=== PATIENT | male | born 1980 | race Caucasian/White ===

== ENCOUNTER 2021-07-15 15:19 | Emergency (ER) | payer BC, OTHER ==
[2021-07-15 16:14] VITALS: TEMP 98.2
[2021-07-15] MEDS ORDERED: SODIUM CHLORIDE 0.9% 500 ML 500 ML IV ONE (16:46)
--- NOTE | 2021-07-15 17:00 | ED ---
General Adult HPI - General Chief complaint: Recheck/Abnormal Lab/Rx Stated complaint: High Blood Pressure, Near Syncope Time Seen by Provider: 07/15/21 16:30 Source: patient, RN notes reviewed, old records reviewed Mode of arrival: ambulatory - History of Present Illness Initial comments: This is a 41-year-old male who presents emergency Department stating that on Wednesday [place] he started feeling off and stated that he has slurred speech he was having some difficulties walking he stated he was having some difficulty driving his car stay on the road he felt as though he was a little bit dizzy. Patient states he doesn't have any more slurred speech. Patient s tates he still doesn't feel himself and yesterday has some trouble trying to remember what day it was. Patient states today he just feels off he does not also describe it but he doesn't feel lightheaded.His father works with him and states he doesn't seem to be himself and seems to be a little off and that is why brought him in. Father states he looks the same there is no drooping face or so slurred speech but he just seems weak and he also is noted over the last couple of weeks just break out with diaphoresis even though the room was in the 60s. Patient denies any chest pain palpitations difficulty breathing shortest breath per patient denies any fever chills per patient denies any abdominal pain patient denies nausea vomiting diarrhea. She is a diabetic as well. Patient states that he has been feeling a little off last couple weeks and has noticed some episodes of diaphoresis and it has become so frequent and excessive that other people are starting to notice. Father also stated he is extremely tired lately. - Related Data Home Medications Medication Instructions Recorded Confirmed ARIPiprazole [Abilify] 2 mg PO DAILY 07/15/21 07/15/21 Citalopram Hydrobromide [CeleXA] 40 mg PO DAILY 07/15/21 07/15/21 Dextroamphetamine/Amphetamine 30 mg PO DAILY 07/15/21 07/15/21 [Adderall] Propranolol HCl 120 mg PO BID 07/15/21 07/15/21 clonazePAM [KlonoPIN] 0.5 mg PO DAILY PRN 07/15/21 07/15/21 metFORMIN HCL 1,000 mg PO BID-W/MEALS 07/15/21 07/15/21 Allergies Allergy/AdvReac Type Severity Reaction Status Date / Time No Known Allergies Allergy Verified 07/15/21 17:47 Review of Systems ROS Statement: Those systems with pertinent positive or pertinent negative responses have been documented in the HPI. ROS Other: All systems not noted in ROS Statement are negative. Past Medical History Past Medical History: Diabetes Mellitus, Hypertension History of Any Multi-Drug Resistant Organisms: None Reported Past Surgical History: Orthopedic Surgery Past Psychological History: No Psychological Hx Reported, Anxiety, Bipolar Smoking Status: Never smoker Past Alcohol Use History: None Reported Past Drug Use History: None Reported General Exam - General Exam Comments Initial Comments: GENERAL: Patient is well-developed and well-nourished. Patient is nontoxic and well-hy drated and is in no acute distress. ENT: Neck is soft and supple. No significant lymphadenopathy is noted. Oropharynx is clear. Moist mucous membranes. Neck has full range of motion without elici ting any pain. EYES: The sclera were anicteric and conjunctiva were pink and moist. Extraocular movements were intact and pupils were equal round and reactive to light. Eyelids were unremarkable. PULMONARY: Unlabored respirations. Good breath sounds bilaterally. No audible rales rhonchi or wheezing was noted. CARDIOVASCULAR: There is a regular rate and rhythm without any murmurs gallops or rubs. ABDOMEN: Soft and nontender with normal bowel sounds. SKIN: Skin is clear with no lesions or rashes and otherwise unremarkable. NEUROLOGIC: Patient is alert and oriented x3. Cranial nerves II through XII are grossly intact. Motor and sensory are also intact. Normal speech, volume and content. Symmetrical smile. MUSCULOSKELETAL: Normal extremities with adequate strength and full range of motion. No lower extremity swelling or edema. No calf tenderness. LYMPHATICS: No significant lymphadenopathy is noted PSYCHIATRIC: Normal psychiatric evaluation. Course Vital Signs 07/15/21 07/15/21 07/15/21 16:08 18:21 19:30 Temperature 98.2 F Pulse Rate 82 82 87 Respiratory 18 16 16 Rate Blood Pressure 176/100 160/102 156/92 O2 Sat by Pulse 95 99 100 Oximetry Medical Decision Making - Medical Decision Making EKG shows sinus rhythm at 60 bpm NE interval 159 QRSs 80 QT interval 392 QTC is 49. Patient's EKG shows no ST segment elevation or depression. CT of the brain showed no acute abnormality. I confronted the patient about his methamphetamine abuse he did not admit to it but some of his questioning indicated he may have been using. Patient states he is still worried about slurred speech and the fact that he was off balance and was having difficulty driving home. He states he still doesn't feel like he is at his baseline. I spoke with sounds physician's he agreed to admit the patient admitted the patient wrote admitting orders patient decided not to stay because he was confronted with the methamphetamine abuse in the left AMA - Lab Data Result diagrams: 07/15/21 17:35 07/15/21 17:35 Lab Results 07/15/21 07/15/21 07/15/21 Range/Units 17:35 17:35 17:35 WBC 5.6 (3.8-10.6) k/uL RBC 5.24 (4.30-5.90) m/uL Hgb 14.4 (13.0-17.5) gm/dL Hct 44.4 (39.0-53.0) % MCV 84.7 (80.0-100.0) fL MCH 27.5 (25.0-35.0) pg MCHC 32.5 (31.0-37.0) g/dL RDW 13.4 (11.5-15.5) % Plt Count 248 (150-450) k/uL MPV 7.4 Neutrophils % 51 % Lymphocytes % 34 % Monocytes % 6 % Eosinophils % 5 % Basophils % 1 % Neutrophils # 2.8 (1.3-7.7) k/uL Lymphocytes # 1.9 (1.0-4.8) k/uL Monocytes # 0.3 (0-1.0) k/uL Eosinophils # 0.3 (0-0.7) k/uL Basophils # 0.1 (0-0.2) k/uL PT 10.2 (9.0-12.0) sec INR 0.9 (<1.2) APTT 24.0 (22.0-30.0) sec Sodium (137-145) mmol/L Potassium (3.5-5.1) mmol/L Chloride (98-107) mmol/L Carbon Dioxide (22-30) mmol/L Anion Gap mmol/L BUN (9-20) mg/dL Creatinine (0.66-1.25) mg/dL Est GFR (CKD-EPI)AfAm (>60 ml/min/1.73 sqM) Est GFR (CKD-EPI)NonAf (>60 ml/min/1.73 sqM) Glucose (74-99) mg/dL Calcium (8.4-10.2) mg/dL Magnesium (1.6-2.3) mg/dL Total Bilirubin (0.2-1.3) mg/dL AST (17-59) U/L ALT (4-49) U/L Alkaline Phosphatase (38-126) U/L Troponin I (0.000-0.034) ng/mL Total Protein (6.3-8.2) g/dL Albumin (3.5-5.0) g/dL TSH (0.465-4.680) mIU/L Free T4 (0.78-2.19) ng/dL Urine Color Urine Appearance (Clear) Urine pH (5.0-8.0) Ur Specific Clifford (1.001-1.035) Urine Protein (Negative) Urine Glucose (UA) (Negative) Urine Ketones (Negative) Urine Blood (Negative) Urine Nitrite (Negative) Urine Bilirubin (Negative) Urine Urobilinogen (<2.0) mg/dL Ur Leukocyte Esterase (Negative) Urine RBC (0-5) /hpf Urine WBC (0-5) /hpf Ur Squamous Epith Cells (0-4) /hpf Amorphous Sediment (None) /hpf Urine Mucus (None) /hpf Urine Opiates Screen (NotDetected) Ur Oxycodone Screen (NotDetected) Urine Methadone Screen (NotDetected) Ur Propoxyphene Screen (NotDetected) Ur Barbiturates Screen (NotDetected) U Tricyclic Antidepress (NotDetected) Ur Phencyclidine Scrn (NotDetected) Ur Amphetamines Screen (NotDetected) U Methamphetamines Scrn (NotDetected) U Benzodiazepines Scrn (NotDetected) Urine Cocaine Screen (NotDetected) U Marijuana (THC) Screen (NotDetected) Acetone, Qual (Negative) Coronavirus (PCR) Not Detected (Not Detectd) 07/15/21 07/15/21 07/15/21 Range/Units 17:35 17:35 17:35 WBC (3.8-10.6) k/uL RBC (4.30-5.90) m/uL Hgb (13.0-17.5) gm/dL Hct (39.0-53.0) % MCV (80.0-100.0) fL MCH (25.0-35.0) pg MCHC (31.0-37.0) g/dL RDW (11.5-15.5) % Plt Count (150-450) k/uL MPV Neutrophils % % Lymphocytes % % Monocytes % % Eosinophils % % Basophils % % Neutrophils # (1.3-7.7) k/uL Lymphocytes # (1.0-4.8) k/uL Monocytes # (0-1.0) k/uL Eosinophils # (0-0.7) k/uL Basophils # (0-0.2) k/uL PT (9.0-12.0) sec INR (<1.2) APTT (22.0-30.0) sec Sodium 135 L (137-145) mmol/L Potassium 4.2 (3.5-5.1) mmol/L Chloride 100 (98-107) mmol/L Carbon Dioxide 31 H (22-30) mmol/L Anion Gap 4 mmol/L BUN 13 (9-20) mg/dL Creatinine 0.83 (0.66-1.25) mg/dL Est GFR (CKD-EPI)AfAm >90 (>60 ml/min/1.73 sqM) Est GFR (CKD-EPI)NonAf >90 (>60 ml/min/1.73 sqM) Glucose 175 H (74-99) mg/dL Calcium 8.7 (8.4-10.2) mg/dL Magnesium 1.6 (1.6-2.3) mg/dL Total Bilirubin 0.6 (0.2-1.3) mg/dL AST 46 (17-59) U/L ALT 78 H (4-49) U/L Alkaline Phosphatase 48 (38-126) U/L Troponin I <0.012 (0.000-0.034) ng/mL Total Protein 7.1 (6.3-8.2) g/dL Albumin 3.8 (3.5-5.0) g/dL TSH 0.459 L (0.465-4.680) mIU/L Free T4 1.19 (0.78-2.19) ng/dL Urine Color Yellow Urine Appearance Cloudy (Clear) Urine pH 6.0 (5.0-8.0) Ur Specific Clifford 1.029 (1.001-1.035) Urine Protein Trace H (Negative) Urine Glucose (UA) 3+ H (Negative) Urine Ketones Negative (Negative) Urine Blood Negative (Negative) Urine Nitrite Negative (Negative) Urine Bilirubin Negative (Negative) Urine Urobilinogen 2.0 (<2.0) mg/dL Ur Leukocyte Esterase Trace H (Negative) Urine RBC 1 (0-5) /hpf Urine WBC 8 H (0-5) /hpf Ur Squamous Epith Cells <1 (0-4) /hpf Amorphous Sediment Rare H (None) /hpf Urine Mucus Many H (None) /hpf Urine Opiates Screen Not Detected (NotDetected) Ur Oxycodone Screen Not Detected (NotDetected) Urine Methadone Screen Not Detected (NotDetected) Ur Propoxyphene Screen Not Detected (NotDetected) Ur Barbiturates Screen Not Detected (NotDetected) U Tricyclic Antidepress Not Detected (NotDetected) Ur Phencyclidine Scrn Not Detected (NotDetected) Ur Amphetamines Screen Detected H (NotDetected) U Methamphetamines Scrn Detected H (NotDetected) U Benzodiazepines Scrn Not Detected (NotDetected) Urine Cocaine Screen Not Detected (NotDetected) U Marijuana (THC) Screen Detected H (NotDetected) Acetone, Qual Negative (Negative) Coronavirus (PCR) (Not Detectd) Disposition Clinical Impression: TIA (transient ischemic attack), Methamphetamine abuse Disposition: Left Against Medical Advice Referrals: Angela Pradhan MD [Primary Care Provider] - 1-2 days Time of Disposition: 19:24
[2021-07-15] MEDS ORDERED: hydrALAZINE HCL 20 MG/ML 1 ML VIAL IVP STA (17:01)
--- NOTE | 2021-07-15 17:25 | XR ---
EXAMINATION TYPE: XR chest 2V DATE OF EXAM: 07/15/2021 5:05 PM COMPARISON: None TECHNIQUE: XR chest 2V Frontal and lateral views of the chest. CLINICAL INDICATION:Male, 41 years old with history of Chest Pain; FINDINGS: Lungs/Pleura: There is no evidence of pleural effusion, focal consolidation, or pneumothorax. Pulmonary vascularity: Unremarkable. Heart/mediastinum: Cardiomediastinal silhouette is unremarkable. Musculoskeletal: No acute osseous pathology. IMPRESSION: No acute cardiopulmonary disease/process.
--- NOTE | 2021-07-15 17:47 | CT ---
EXAMINATION TYPE: CT brain wo con CT DLP: 1188.4 mGycm, Automated exposure control for dose reduction was used. DATE OF EXAM: 07/15/2021 5:16 PM COMPARISON: None. CLINICAL INDICATION:Male, 41 years old with history of Slurred speech, ataxia, Slurred speech. TECHNIQUE: Brain: Multiple axial CT images of the brain were obtained without IV contrast. FINDINGS: Brain: Extra-axial spaces: No abnormal extra-axial fluid collections. Ventricular system: Within normal limits Cerebral parenchyma: No acute intraparenchymal hemorrhage or mass effect. The morelos-white junction is well differentiated. Cerebellum: Unremarkable. Mass effect: No evidence of midline shift. Intracranial vasculature: unremarkable Soft tissues: Normal. Calvarium/osseous structures: No depressed skull fracture. Paranasal sinuses and mastoid air cells: Mild scattered paranasal sinus disease. Visualized orbits: Orbital contents are intact. IMPRESSION: No acute intracranial process.
[2021-07-15 17:54] LABS: Basophils # (A) 0.1 k/uL (0-0.2); Basophils % (A) 1 %; Eosinophils # (A) 0.3 k/uL (0-0.7); Eosinophils % (A) 5 %; HCT 44.4 % (39.0-53.0); HGB 14.4 gm/dL (13.0-17.5); Lymphocytes # (A) 1.9 k/uL (1.0-4.8); Lymphocytes % (A) 34 %; MCH 27.5 pg (25.0-35.0); MCHC 32.5 g/dL (31.0-37.0); MCV 84.7 fL (80.0-100.0); Mean Platelet Volume 7.4; Monocytes # (A) 0.3 k/uL (0-1.0); Monocytes % (A) 6 %; Neutrophils # (A) 2.8 k/uL (1.3-7.7); Neutrophils % (A) 51 %; Platelet Count 248 k/uL (150-450); RBC 5.24 m/uL (4.30-5.90); RDW 13.4 % (11.5-15.5); WBC 5.6 k/uL (3.8-10.6)
[2021-07-15 18:00] LABS: INR 0.9 (<1.2); Prothrombin Time 10.2 sec (9.0-12.0)
[2021-07-15 18:02] LABS: ALT 78 U/L (4-49); AST 46 U/L (17-59); African American GFR (CKD) >90 (>60 ml/min/1.73 sqM); Albumin 3.8 g/dL (3.5-5.0); Alkaline Phosphatase 48 U/L (38-126); Anion Gap 4 mmol/L; Blood Urea Nitrogen 13 mg/dL (9-20); Calcium 8.7 mg/dL (8.4-10.2); Carbon Dioxide 31 mmol/L (22-30); Chloride 100 mmol/L (98-107); Glucose 175 mg/dL (74-99); Magnesium 1.6 mg/dL (1.6-2.3); Non-African American GFR(CKD) >90 (>60 ml/min/1.73 sqM); Potassium 4.2 mmol/L (3.5-5.1); Sodium 135 mmol/L (137-145); Total Bilirubin 0.6 mg/dL (0.2-1.3); Total Protein 7.1 g/dL (6.3-8.2)
[2021-07-15 18:21] VITALS: RESP 16
[2021-07-15 18:57] LABS: Amorphous Sediment,Urine Rare /hpf; Appearance,Urine Cloudy (Clear); Bilirubin,Urine Negative (Negative); Blood,Urine Negative (Negative); Color,Urine Yellow; Glucose,Urine (UA) 3+ (Negative); Ketones,Urine Negative (Negative); Leukocyte Esterase,Urine Trace (Negative); Mucus,Urine Many /hpf; Nitrite,Urine Negative (Negative); Protein,Urine Trace (Negative); RBC,Urine 1 /hpf (0-5); Specific Gravity,Urine 1.029 (1.001-1.035); Squamous Epithelial Cell,Urine <1 /hpf (0-4); WBC,Urine 8 /hpf (0-5)
[2021-07-15 18:59] LABS: Amphetamine Screen,Urine Detected (NotDetected); Barbiturate Screen,Urine Not Detected (NotDetected); Benzodiazepines Screen,Urine Not Detected (NotDetected); Cocaine Screen,Urine Not Detected (NotDetected); Methadone Screen, Urine Not Detected (NotDetected); Opiate Screen,Urine Not Detected (NotDetected); Oxycodone Screen, Urine Not Detected (NotDetected); Phencyclidine Screen,Urine Not Detected (NotDetected); Tricyclic Antidepressant,Urine Not Detected (NotDetected); Urn Cannabinoid Scrn Detected (NotDetected)
[2021-07-15 19:18] LABS: T4, Free (Free Thyroxine) 1.19 ng/dL (0.78-2.19)
[2021-07-15] MEDS ORDERED: ASPIRIN 325 MG TAB PO STA (19:24)
[2021-07-15 19:31] VITALS: BP 156/92; PULSE 87
[2021-07-16] MEDS ORDERED: ASPIRIN 325 MG TAB PO SCH (09:00)
== END 2021-07-15 19:25 | disposition left against medical advice (07) ==
LOC: EC 15:19
DX: G45.9 Transient cerebral ischemic attack, unspecified (principal); F15.10 Other stimulant abuse, uncomplicated; E11.9 Type 2 diabetes mellitus without complications; I10 Essential (primary) hypertension; Z79.84 Long term (current) use of oral hypoglycemic drugs; Z79.899 Other long term (current) drug therapy; Z20.822 Contact with and (suspected) exposure to COVID-19
CPT/HCPCS: 36415; 93005; 84439; 80053; 84443; 82009; 83735; 84484; 85025; 85610; 85730; 81001; 80306; 87635; 71046; 70450; 99284; 96374; J0360

== ENCOUNTER 2022-09-01 01:49 | Emergency (ER) | payer BC ==
[2022-09-01 02:03] VITALS: RESP 16; TEMP 98.3
[2022-09-01] MEDS ORDERED: methylPREDNISolone SOD SUCCI 125 MG/2 ML VIAL IM ONE (02:13)
[2022-09-01 02:15] VITALS: BP 159/110; PULSE 88
[2022-09-01] MEDS ORDERED: KETOROLAC 15 MG/ML 1 ML VIAL IM STA (02:21)
--- NOTE | 2022-09-01 02:23 | ED ---
General Adult HPI - General Chief complaint: Skin/Abscess/Foreign Body Stated complaint: Poison Claire Time Seen by Provider: 09/01/22 02:07 Source: patient Mode of arrival: ambulatory - History of Present Illness Initial comments: Patient is a 42-year-old male who presents to the emergency department for rash. Patient describes poison claire type rash for almost 2 weeks over his lower extremities, back, abdomen. After he was [place] in [place]. Patient states the rash is very itchy and somewhat painful. He denies history of poison claire, oak, sumac. No fever or chills. No shortness of breath. - Related Data Home Medications Medication Instructions Recorded Confirmed ARIPiprazole [Abilify] 2 mg PO DAILY 07/15/21 07/15/21 Citalopram Hydrobromide [CeleXA] 40 mg PO DAILY 07/15/21 07/15/21 Dextroamphetamine/Amphetamine 30 mg PO DAILY 07/15/21 07/15/21 [Adderall] Propranolol HCl 120 mg PO BID 07/15/21 07/15/21 clonazePAM [KlonoPIN] 0.5 mg PO DAILY PRN 07/15/21 07/15/21 metFORMIN HCL 1,000 mg PO BID-W/MEALS 07/15/21 07/15/21 Previous Rx's Medication Instructions Recorded Ibuprofen [Motrin] 800 mg PO Q8HR PRN #30 tab 09/01/22 predniSONE See Taper PO DIRECTED #80 tab 09/01/22 Allergies Allergy/AdvReac Type Severity Reaction Status Date / Time No Known Allergies Allergy Verified 07/15/21 17:47 Review of Systems ROS Statement: Those systems with pertinent positive or pertinent negative responses have been documented in the HPI. ROS Other: All systems not noted in ROS Statement are negative. Past Medical History Past Medical History: Diabetes Mellitus, Hypertension History of Any Multi-Drug Resistant Organisms: None Reported Past Surgical History: Orthopedic Surgery Past Psychological History: No Psychological Hx Reported, Anxiety, Bipolar Smoking Status: Never smoker Past Alcohol Use History: None Reported Past Drug Use History: None Reported General Exam General appearance: alert, in no apparent distress Head exam: Present: atraumatic, normocephalic, normal inspection Eye exam: Present: normal appearance, PERRL, EOMI. Absent: scleral icterus, conjunctival injection, periorbital swelling Respiratory exam: Present: normal lung sounds bilaterally. Absent: respiratory distress, wheezes, rales, rhonchi, stridor Cardiovascular Exam: Present: regular rate, normal rhythm, normal heart sounds. Absent: systolic murmur, diastolic murmur, rubs, gallop, clicks Neurological exam: Present: alert, oriented X3, CN II-XII intact Psychiatric exam: Present: normal affect, normal mood Skin exam: Present: warm, dry, intact, normal color, rash (widespread dermatitis of the lower extremities, abdomen, back ) Course Vital Signs 09/01/22 09/01/22 02:00 02:14 Temperature 98.3 F Pulse Rate 89 88 Respiratory 16 Rate Blood Pressure 155/113 159/110 O2 Sat by Pulse 100 98 Oximetry Medical Decision Making - Medical Decision Making Was pt. sent in by a medical professional or institution (, PA, WINDOWS MOBILE DEVELOPER, urgent care, hospital, or longterm...) When possible be specific @ -No Did you speak to anyone other than the patient for history (EMS, parent, family, police, friend...)? What history was obtained from this source @ -No Did you review nursing and triage notes (agree or disagree)? Why? @ -I reviewed and agree with nursing and triage notes Were old charts reviewed (outside hosp., previous admission, EMS record, old EKG, old radiological studies, urgent care reports/EKG's, longterm records)? Report findings @ -No old charts were reviewed Differential Diagnosis (chest pain, altered mental status, abdominal pain women, abdominal pain men, vaginal bleeding, weakness, fever, dyspnea, syncope, headache, dizziness, GI bleed, back pain, seizure, CVA, palpatations, mental health)? @ -Medication reaction, contact dermatitis, poison claire, poison oak, sumac. This list is not meant to be all-inclusive EKG interpreted by me (3pts min.). @ -As above X-rays interpreted by me (1pt min.). @ -None done CT interpreted by me (1pt min.). @ -None done U/S interpreted by me (1pt. min.). @ -None done What testing was considered but not performed or refused? (CT, X-rays, U/S, labs)? Why? @ -None What meds were considered but not given or refused? Why? @ -None Did you discuss the management of the patient with other professionals (professionals i.e. , PA, WINDOWS MOBILE DEVELOPER, lab, RT, psych nurse, social worker psychiatric, bakery pastry internship, teacher, veterans service officer, upper caser)? Give summary @ -No Was smoking cessation discussed for >3mins.? @ -No Was critical care preformed (if so, how long)? @ -No Were there social determinants of health that impacted care today? How? (Homelessness, low income, unemployed, alcoholism, drug addiction, transportation, low edu. Level, literacy, decrease access to med. care, half-way, rehab)? @ -[No] Was there de-escalation of care discussed even if they declined (Discuss DNR or withdrawal of care, Hospice)? DNR status @ -[No] What co-morbidities impacted this encounter? (DM, HTN, Smoking, COPD, CAD, Cancer, CVA, ARF, Chemo, Hep., AIDS, mental health diagnosis, sleep apnea, morbid obesity)? @ -[None] Was patient admitted / discharged? Hospital course, mention meds given and route, prescriptions, significant lab abnormalities, going to OR and other pertinent info. @ -Discharged. Patient has widespread dermatitis which appears to be related to poison claire or oak. No airway compromise patient will be discharged with prednisone taper Undiagnosed new problem with uncertain prognosis? @ -[No] Drug Therapy requiring intensive monitoring for toxicity (Heparin, Nitro, Insulin, Cardizem)? @ -[No] Were any procedures done? @ -[No] Diagnosis/symptom? @ -Poison claire Acute, or Chronic, or Acute on Chronic? @Acute Uncomplicated (without systemic symptoms) or Complicated (systemic symptoms)? @ -Uncomplicated Side effects of treatment? @ -[No] Exacerbation, Progression, or Severe Exacerbation? @ -[No] Poses a threat to life or bodily function? How? (Chest pain, USA, MS, pneumonia, PE, COPD, DKA, ARF, appy, cholecystitis, CVA, Diverticulitis, Homicidal, Suicidal, threat to staff... and all critical care pts) @ -[No] Dr. Hunt is my attending Disposition Clinical Impression: Poison claire Disposition: HOME SELF-CARE Condition: Good Instructions (If sedation given, give patient instructions): Poison Claire (ED) Additional Instructions: Take medication as directed. Take Benadryl for any itching. Oatmeal baths may help with itching as well. Avoid scratching. It is important to take your blood pressure medication. Return to the emergency department if you experience new, concerning, or worsening symptoms. Prescriptions: Ibuprofen [Motrin] 800 mg PO Q8HR PRN #30 tab PRN Reason: Pain predniSONE See Taper PO DIRECTED #80 tab Is patient prescribed a controlled substance at d/c from ED?: No Referrals: Angela Pradhan MD [Primary Care Provider] - 1-2 days
== END 2022-09-01 02:40 | disposition home or self-care (01) ==
LOC: EC 01:49
DX: L23.7 Allergic contact dermatitis due to plants, except food (principal); I10 Essential (primary) hypertension; E11.9 Type 2 diabetes mellitus without complications; Z79.84 Long term (current) use of oral hypoglycemic drugs
CPT/HCPCS: 99283; 96372 ×2; J2930; J1885

== ENCOUNTER 2023-02-24 20:49 | Inpatient (IN) | payer BC, OTHER ==
[2023-02-24 21:11] LABS: Glucose,Whole Blood 147 mg/dL (70-110)
[2023-02-24] MEDS ORDERED: SODIUM CHLORIDE 0.9% 1,000 ML IV STA (23:08)
[2023-02-24] MEDS ORDERED: LORazepam 2 MG/ML INJ IV STA (23:09)
--- NOTE | 2023-02-24 23:57 | XR ---
EXAM: XR Chest, 2 Views CLINICAL HISTORY: ITS.REASON XR Reason: cough TECHNIQUE: Frontal and lateral views of the chest. COMPARISON: Chest 2 views dated 07/15/2021 FINDINGS: Lungs: Unremarkable. No consolidation. The pulmonary vasculature demonstrates no significant radiographic abnormality. Pleural space: Unremarkable. No pneumothorax. No large pleural effusion. Heart: Unremarkable. No cardiomegaly. Mediastinum: The mediastinal contours are unremarkable. The trachea is midline. Bones/joints: Unremarkable. No acute fracture. IMPRESSION: No acute cardiopulmonary process or significant alteration from the previous examination.
--- NOTE | 2023-02-24 23:59 | CT ---
EXAM: CT Head Without Intravenous Contrast CLINICAL HISTORY: ams TECHNIQUE: Axial computed tomography images of the head/brain without intravenous contrast. CTDI is 49.1 mGy and DLP is 1212.4 mGy-cm. This CT exam was performed using one or more of the following dose reduction techniques: automated exposure control, adjustment of the mA and/or kV according to patient size, and/or use of iterative reconstruction technique. COMPARISON: CT head without contrast dated 07/15/2021 FINDINGS: Limitations: There is mild motion artifact through the inferior calvarium, which degrades image quality on multiple image slices. Brain: Unremarkable. No hemorrhage. No significant white matter disease. No edema. Ventricles: Unremarkable. No ventriculomegaly. Bones/joints: No acute osseous abnormality. No focal lesion. Soft tissues: Unremarkable. Sinuses: Unremarkable as visualized. No acute sinusitis. Mastoid air cells: Unremarkable as visualized. No mastoid effusion. IMPRESSION: No acute intracranial process identified.
[2023-02-25 00:10] LABS: Basophils # (A) 0.1 k/uL (0-0.2); Basophils % (A) 1 %; Eosinophils # (A) 0.1 k/uL (0-0.7); Eosinophils % (A) 1 %; HCT 42.3 % (39.0-53.0); HGB 14.1 gm/dL (13.0-17.5); Lymphocytes % (A) 28 %; MCH 27.7 pg (25.0-35.0); MCHC 33.2 g/dL (31.0-37.0); MCV 83.4 fL (80.0-100.0); Mean Platelet Volume 7.5; Monocytes # (A) 0.8 k/uL (0-1.0); Monocytes % (A) 7 %; Neutrophils # (A) 6.6 k/uL (1.3-7.7); Neutrophils % (A) 62 %; Platelet Count 251 k/uL (150-450); RBC 5.07 m/uL (4.30-5.90); RDW 13.1 % (11.5-15.5); WBC 10.7 k/uL (3.8-10.6)
[2023-02-25 00:15] LABS: ALT 50 U/L (4-49); AST 52 U/L (17-59); African American GFR (CKD) >90 (>60 ml/min/1.73 sqM); Albumin 4.3 g/dL (3.5-5.0); Alkaline Phosphatase 50 U/L (38-126); Anion Gap 11 mmol/L; Blood Urea Nitrogen 16 mg/dL (9-20); Calcium 9.1 mg/dL (8.4-10.2); Carbon Dioxide 23 mmol/L (22-30); Chloride 102 mmol/L (98-107); Glucose 104 mg/dL (74-99); Non-African American GFR(CKD) 88 (>60 ml/min/1.73 sqM); Sodium 136 mmol/L (137-145); Total Bilirubin 1.1 mg/dL (0.2-1.3); Total Protein 6.9 g/dL (6.3-8.2)
[2023-02-25] MEDS ORDERED: LORazepam 2 MG/ML INJ IV STA (01:31)
--- NOTE | 2023-02-25 01:35 | ED ---
General Adult HPI - General Chief complaint: Dizziness Stated complaint: ams Time Seen by Provider: 02/24/23 22:20 Source: patient, RN notes reviewed, old records reviewed Mode of arrival: ambulatory Limitations: no limitations - History of Present Illness Initial comments: Patient is a 42-year-old male who presents emergency Department complaining of m ultiple complaints. States he is having short-term memory loss, has intermittent lightheadedness, is confused occasionally. Is alert and oriented 4 currently. Is tachycardic. States he does use methamphetamines. Appears homeless but states he has some or to stay. Appears disheveled. Denies any suicidal or homicidal ideations, attempts complaints. Denies any hallucinations. He states he feels like he should be on them for his diabetes however he has been off of it but his sugars have been fine. Has some tangential thinking and speech when I discussed with him. States he is fussy and psychiatric medications but is not. Presents for further evaluation. - Related Data Home Medications Medication Instructions Recorded Confirmed No Known Home Medications 02/24/23 02/24/23 Allergies Allergy/AdvReac Type Severity Reaction Status Date / Time No Known Allergies Allergy Verified 02/24/23 22:38 Review of Systems ROS Statement: Those systems with pertinent positive or pertinent negative responses have been documented in the HPI. Review of Systems: CONST: Denies fever EYES: Denies blurry vision ENT: Denies nasal congestion C/V: Denies Chest pain RESP: Denies shortness of breath GI: Denies abdominal pain : Denies dysuria SKIN: Denies rash. MSK: Denies joint pain. NEURO: Denies headache ROS Other: All systems not noted in ROS Statement are negative. Past Medical History Past Medical History: Diabetes Mellitus, Hypertension History of Any Multi-Drug Resistant Organisms: None Reported Past Surgical History: Orthopedic Surgery Past Psychological History: No Psychological Hx Reported, Anxiety, Bipolar Smoking Status: Former smoker Past Alcohol Use History: Occasional Past Drug Use History: Marijuana, Methamphetamine General Exam - General Exam Comments Initial Comments: General: Appears anxious, disheveled HEAD: Normal with no signs of head trauma. EYES: PERRLA, EOMI, conjunctiva normal, no discharge. ENT: Hearing grossly intact, normal oropharynx. RESPIRATORY: Clear breath sounds bilaterally. No wheezes, rales, or rhonchi. C/V: Tachycardic, S1 and S2 auscultated, peripheral pulses 2+ and intact throughout ABD: Abd is soft, nontender, nondistended EXT: Normal range of motion, no obvious deformity SKIN: No rashes or lesions observed on exposed skin. NEURO: Alert and oriented 4. No focal neurological deficits. Ambulatory without issue. Does not appear to have any memory issues when I discussed with him. Limitations: no limitations Course Vital Signs 02/24/23 02/25/23 02/25/23 20:58 00:00 11:15 Temperature 98.1 F 98.0 F Pulse Rate 134 H 120 H 97 Respiratory 22 20 18 Rate Blood Pressure 182/101 145/89 161/103 O2 Sat by Pulse 100 100 100 Oximetry 02/25/23 14:50 Temperature 98.2 F Pulse Rate 104 H Respiratory 22 Rate Blood Pressure 159/95 O2 Sat by Pulse 98 Oximetry Medical Decision Making - Medical Decision Making Was pt. sent in by a medical professional or institution (, PA, LOGISTICS ACCOUNT MANAGER, urgent care, hospital, or half-way...) When possible be specific @ -No Did you speak to anyone other than the patient for history (EMS, parent, family, police, friend...)? What history was obtained from this source @ -No Did you review nursing and triage notes (agree or disagree)? Why? @ -I reviewed and agree with nursing and triage notes Were old charts reviewed (outside hosp., previous admission, EMS record, old EKG, old radiological studies, urgent care reports/EKG's, half-way records)? Report findings @ -Old charts reviewed Differential Diagnosis (chest pain, altered mental status, abdominal pain women, abdominal pain men, vaginal bleeding, weakness, fever, dyspnea, syncope, headache, dizziness, GI bleed, back pain, seizure, CVA, palpatations, mental health, musculoskeletal)? @ -Differential Mental Health Depression, anxiety, bipolar, psychosis, schizophrenia, borderline personality, situational depression, adjustment disorder, behavioral disorder, brain tumor, malingering, substance abuse, encephalopathy, medication reaction, dementia, hypothyroidism, degenerative neurologic disorder, lupus.... This is not meant to be all-inclusive list Differential Dizziness: Benign paroxysmal positional Vertigo, Menieres disease, otitis media, acoustic neuroma, vertebrobasilar insufficiency, cerebellar stroke, encephalitis, hypovolemic, arrhythmia, coronary artery syndrome, anemia, this is not meant to be an all-inclusive list EKG interpreted by me (3pts min.). @ -As above X-rays interpreted by me (1pt min.). @ -Chest X Ray reveals no obvious acute cardiopulmonary process. CT interpreted by me (1pt min.). @ -CT brain reveals no evidence of acute intracranial process. U/S interpreted by me (1pt. min.). @ -None done What testing was considered but not performed or refused? (CT, X-rays, U/S, labs)? Why? @ -None What meds were considered but not given or refused? Why? @ None Did you discuss the management of the patient with other professionals (professionals i.e. , PA, LOGISTICS ACCOUNT MANAGER, lab, RT, psych nurse, high school social studies tutor, tile layer, teacher, investigation officer, case management coordinator)? Give summary @ -EPS notified of the consult Was smoking cessation discussed for >3mins.? @ No Was critical care preformed (if so, how long)? @ No Were there social determinants of health that impacted care today? How? (Homelessness, low income, unemployed, alcoholism, drug addiction, transportation, low edu. Level, literacy, decrease access to med. care, senior living, rehab)? @ No Was there de-escalation of care discussed even if they declined (Discuss DNR or withdrawal of care, Hospice)? DNR status @ No What co-morbidities impacted this encounter? (DM, HTN, Smoking, COPD, CAD, Cancer, CVA, ARF, Chemo, Hep., AIDS, mental health diagnosis, sleep apnea, morbid obesity)? @ None Was patient admitted / discharged? Hospital course, mention meds given and route, prescriptions, significant lab abnormalities, going to OR and other pertinent info. @ -Based on the patient's presentation and physical exam, he presents complaining of weeks of symptoms of intermittent dizziness, possible short-term memory loss. Currently has no symptoms at this time. Appears disheveled. [facility] is non compliant with medications which include psychiatric meds. Cannot tell me the names. Does endorse methamphetamine use recently. Patient is disheveled. I did discuss with him and we will obtain medical rule out for any obvious cause of his symptoms however do believe it is likely related to substance abuse. I did offer discussion with psychiatric services following workup which she accepted. Vital signs of tachycardia within acceptable limits. EKG shows sinus tachycardia. Patient given IV Ativan as well as IV fluids. Patient's laboratory studies are within acceptable limits. Urine studies still pending. Alcohol undetectable. Imaging unremarkable. On reevaluation, patient still feeling restless. I discussed is negative workup. I did offer psychiatric service in which she accepted. EPS notified of the consult. Patient is medically cleared for evaluation by psychiatry. Patient signed out to Dr. Terrazas pending psychiatric evaluation. Patient was admitted to inpatient psychiatry. Undiagnosed new problem with uncertain prognosis? @ No Drug Therapy requiring intensive monitoring for toxicity (Heparin, Nitro, Insulin, Cardizem)? @ No Were any procedures done? @ No Diagnosis/symptom? @ -Methamphetamine abuse Acute, or Chronic, or Acute on Chronic? @ -Acute on chronic Uncomplicated (without systemic symptoms) or Complicated (systemic symptoms)? @ -Complicated Side effects of treatment? @ No Exacerbation, Progression, or Severe Exacerbation? @ No Poses a threat to life or bodily function? How? (Chest pain, USA, ID, pneumonia, PE, COPD, DKA, ARF, appy, cholecystitis, CVA, Diverticulitis, Homicidal, Suicidal, threat to staff... and all critical care pts) @ -Possibly, yes - Lab Data Result diagrams: 02/24/23 23:44 02/24/23 23:44 Lab Results 02/24/23 02/24/23 02/24/23 Range/Units 21:09 23:44 23:44 WBC 10.7 H (3.8-10.6) k/uL RBC 5.07 (4.30-5.90) m/uL Hgb 14.1 (13.0-17.5) gm/dL Hct 42.3 (39.0-53.0) % MCV 83.4 (80.0-100.0) fL MCH 27.7 (25.0-35.0) pg MCHC 33.2 (31.0-37.0) g/dL RDW 13.1 (11.5-15.5) % Plt Count 251 (150-450) k/uL MPV 7.5 Neutrophils % 62 % Lymphocytes % 28 % Monocytes % 7 % Eosinophils % 1 % Basophils % 1 % Neutrophils # 6.6 (1.3-7.7) k/uL Lymphocytes # 3.0 (1.0-4.8) k/uL Monocytes # 0.8 (0-1.0) k/uL Eosinophils # 0.1 (0-0.7) k/uL Basophils # 0.1 (0-0.2) k/uL Sodium 136 L (137-145) mmol/L Potassium 4.0 (3.5-5.1) mmol/L Chloride 102 (98-107) mmol/L Carbon Dioxide 23 (22-30) mmol/L Anion Gap 11 mmol/L BUN 16 (9-20) mg/dL Creatinine 1.05 (0.66-1.25) mg/dL Est GFR (CKD-EPI)AfAm >90 (>60 ml/min/1.73 sqM) Est GFR (CKD-EPI)NonAf 88 (>60 ml/min/1.73 sqM) Glucose 104 H (74-99) mg/dL POC Glucose (mg/dL) 147 H (70-110) mg/dL POC Glu Structured Cabling Technician ID August, Calcium 9.1 (8.4-10.2) mg/dL Total Bilirubin 1.1 (0.2-1.3) mg/dL AST 52 (17-59) U/L ALT 50 H (4-49) U/L Alkaline Phosphatase 50 (38-126) U/L Total Protein 6.9 (6.3-8.2) g/dL Albumin 4.3 (3.5-5.0) g/dL TSH (0.350-5.500) UIU/ML Urine Color Urine Appearance (Clear) Urine pH (5.0-8.0) Ur Specific [place] (1.001-1.035) Urine Protein (Negative) Urine Glucose (UA) (Negative) Urine Ketones (Negative) Urine Blood (Negative) Urine Nitrite (Negative) Urine Bilirubin (Negative) Urine Urobilinogen (<2.0) mg/dL Ur Leukocyte Esterase (Negative) Urine Opiates Screen (NotDetected) Ur Oxycodone Screen (NotDetected) Urine Methadone Screen (NotDetected) Ur Propoxyphene Screen (NotDetected) Ur Barbiturates Screen (NotDetected) U Tricyclic Antidepress (NotDetected) Ur Phencyclidine Scrn (NotDetected) Ur Amphetamines Screen (NotDetected) U Methamphetamines Scrn (NotDetected) U Benzodiazepines Scrn (NotDetected) Urine Cocaine Screen (NotDetected) U Marijuana (THC) Screen (NotDetected) Serum Alcohol mg/dL SARS-CoV-2 (PCR) (Not Detectd) 02/25/23 02/25/23 02/25/23 Range/Units 00:00 05:45 07:23 WBC (3.8-10.6) k/uL RBC (4.30-5.90) m/uL Hgb (13.0-17.5) gm/dL Hct (39.0-53.0) % MCV (80.0-100.0) fL MCH (25.0-35.0) pg MCHC (31.0-37.0) g/dL RDW (11.5-15.5) % Plt Count (150-450) k/uL MPV Neutrophils % % Lymphocytes % % Monocytes % % Eosinophils % % Basophils % % Neutrophils # (1.3-7.7) k/uL Lymphocytes # (1.0-4.8) k/uL Monocytes # (0-1.0) k/uL Eosinophils # (0-0.7) k/uL Basophils # (0-0.2) k/uL Sodium (137-145) mmol/L Potassium (3.5-5.1) mmol/L Chloride (98-107) mmol/L Carbon Dioxide (22-30) mmol/L Anion Gap mmol/L BUN (9-20) mg/dL Creatinine (0.66-1.25) mg/dL Est GFR (CKD-EPI)AfAm (>60 ml/min/1.73 sqM) Est GFR (CKD-EPI)NonAf (>60 ml/min/1.73 sqM) Glucose (74-99) mg/dL POC Glucose (mg/dL) (70-110) mg/dL POC Glu Structured Cabling Technician ID Calcium (8.4-10.2) mg/dL Total Bilirubin (0.2-1.3) mg/dL AST (17-59) U/L ALT (4-49) U/L Alkaline Phosphatase (38-126) U/L Total Protein (6.3-8.2) g/dL Albumin (3.5-5.0) g/dL TSH 0.286 L (0.350-5.500) UIU/ML Urine Color Yellow Urine Appearance Clear (Clear) Urine pH 5.5 (5.0-8.0) Ur Specific [place] 1.030 (1.001-1.035) Urine Protein Trace H (Negative) Urine Glucose (UA) Negative (Negative) Urine Ketones 2+ H (Negative) Urine Blood Negative (Negative) Urine Nitrite Negative (Negative) Urine Bilirubin Negative (Negative) Urine Urobilinogen <2.0 (<2.0) mg/dL Ur Leukocyte Esterase Negative (Negative) Urine Opiates Screen Not Detected (NotDetected) Ur Oxycodone Screen Not Detected (NotDetected) Urine Methadone Screen Not Detected (NotDetected) Ur Propoxyphene Screen Not Detected (NotDetected) Ur Barbiturates Screen Not Detected (NotDetected) U Tricyclic Antidepress Not Detected (NotDetected) Ur Phencyclidine Scrn Not Detected (NotDetected) Ur Amphetamines Screen Detected H (NotDetected) U Methamphetamines Scrn Detected H (NotDetected) U Benzodiazepines Scrn Not Detected (NotDetected) Urine Cocaine Screen Not Detected (NotDetected) U Marijuana (THC) Screen Detected H (NotDetected) Serum Alcohol <10 mg/dL SARS-CoV-2 (PCR) (Not Detectd) 02/25/23 Range/Units 12:20 WBC (3.8-10.6) k/uL RBC (4.30-5.90) m/uL Hgb (13.0-17.5) gm/dL Hct (39.0-53.0) % MCV (80.0-100.0) fL MCH (25.0-35.0) pg MCHC (31.0-37.0) g/dL RDW (11.5-15.5) % Plt Count (150-450) k/uL MPV Neutrophils % % Lymphocytes % % Monocytes % % Eosinophils % % Basophils % % Neutrophils # (1.3-7.7) k/uL Lymphocytes # (1.0-4.8) k/uL Monocytes # (0-1.0) k/uL Eosinophils # (0-0.7) k/uL Basophils # (0-0.2) k/uL Sodium (137-145) mmol/L Potassium (3.5-5.1) mmol/L Chloride (98-107) mmol/L Carbon Dioxide (22-30) mmol/L Anion Gap mmol/L BUN (9-20) mg/dL Creatinine (0.66-1.25) mg/dL Est GFR (CKD-EPI)AfAm (>60 ml/min/1.73 sqM) Est GFR (CKD-EPI)NonAf (>60 ml/min/1.73 sqM) Glucose (74-99) mg/dL POC Glucose (mg/dL) (70-110) mg/dL POC Glu Structured Cabling Technician ID Calcium (8.4-10.2) mg/dL Total Bilirubin (0.2-1.3) mg/dL AST (17-59) U/L ALT (4-49) U/L Alkaline Phosphatase (38-126) U/L Total Protein (6.3-8.2) g/dL Albumin (3.5-5.0) g/dL TSH (0.350-5.500) UIU/ML Urine Color Urine Appearance (Clear) Urine pH (5.0-8.0) Ur Specific [place] (1.001-1.035) Urine Protein (Negative) Urine Glucose (UA) (Negative) Urine Ketones (Negative) Urine Blood (Negative) Urine Nitrite (Negative) Urine Bilirubin (Negative) Urine Urobilinogen (<2.0) mg/dL Ur Leukocyte Esterase (Negative) Urine Opiates Screen (NotDetected) Ur Oxycodone Screen (NotDetected) Urine Methadone Screen (NotDetected) Ur Propoxyphene Screen (NotDetected) Ur Barbiturates Screen (NotDetected) U Tricyclic Antidepress (NotDetected) Ur Phencyclidine Scrn (NotDetected) Ur Amphetamines Screen (NotDetected) U Methamphetamines Scrn (NotDetected) U Benzodiazepines Scrn (NotDetected) Urine Cocaine Screen (NotDetected) U Marijuana (THC) Screen (NotDetected) Serum Alcohol mg/dL SARS-CoV-2 (PCR) Not Detected (Not Detectd) - EKG Data -: EKG Interpreted by Me EKG Comments: 12-lead Electrocardiogram Interpretation Note EKG was reviewed and interpreted by myself. 12-lead ECG performed at 2342 is interpreted by me as revealing sinus tachycardia at a rate of 119 beats per minute. [place] is normal. RI interval is 134 ms, QRS duration is 96 ms, QTc is 395 ms.. There were no ST or T wave abnormalities to suggest myocardial ischemia or injury. R wave progression across the precordium was satisfactory. By my interpretation this EKG is non-diagnostic for acute ischemia. Disposition Clinical Impression: Methamphetamine abuse Disposition: TRANSFER TO PSYCH HOSP/UNIT Condition: Stable
[2023-02-25 06:12] LABS: Appearance,Urine Clear (Clear); Bilirubin,Urine Negative (Negative); Blood,Urine Negative (Negative); Color,Urine Yellow; Glucose,Urine (UA) Negative (Negative); Ketones,Urine 2+ (Negative); Leukocyte Esterase,Urine Negative (Negative); Nitrite,Urine Negative (Negative); PH, Urine 5.5 (5.0-8.0); Protein,Urine Trace (Negative); Urobilinogen,Urine <2.0 mg/dL (<2.0)
[2023-02-25 06:40] LABS: Amphetamine Screen,Urine Detected (NotDetected); Barbiturate Screen,Urine Not Detected (NotDetected); Benzodiazepines Screen,Urine Not Detected (NotDetected); Cocaine Screen,Urine Not Detected (NotDetected); Methadone Screen, Urine Not Detected (NotDetected); Opiate Screen,Urine Not Detected (NotDetected); Oxycodone Screen, Urine Not Detected (NotDetected); Phencyclidine Screen,Urine Not Detected (NotDetected); Tricyclic Antidepressant,Urine Not Detected (NotDetected); Urn Cannabinoid Scrn Detected (NotDetected)
[2023-02-25] MEDS ORDERED: MAGNESIUM HYDROXIDE 2,400 MG/30 ML CUP PO PRN (14:35)
[2023-02-25] MEDS ORDERED: MAG HYDROX/AL HYDROX/SIMETH 30 ML CUP PO PRN (14:35)
[2023-02-25] MEDS ORDERED: traZODone HCL 50 MG TAB PO PRN (14:38)
[2023-02-25] MEDS ORDERED: haloperidoL 5 MG TAB PO PRN (14:38)
[2023-02-25] MEDS ORDERED: LORazepam 1 MG TAB PO PRN (14:38)
[2023-02-25] MEDS ORDERED: LORazepam 2 MG/ML INJ IM PRN (14:38)
[2023-02-25] MEDS ORDERED: HALOPERIDOL LACTATE 5 MG/ML 1 ML VIAL IM PRN (14:38)
[2023-02-25 14:58] LABS: Glucose,Whole Blood 154 mg/dL (70-110)
[2023-02-25 15:35] LABS: Glucose,Whole Blood 153 mg/dL (70-110)
[2023-02-25 17:44] LABS: Glucose,Whole Blood 115 mg/dL (70-110)
[2023-02-25] MEDS: ACETAMINOPHEN TAB 325 MG TAB PO PRN (17:44)
[2023-02-25] MEDS ORDERED: DEXTROSE 50% SYRINGE 50 ML IVP PRN ×2 (17:50)
[2023-02-25 19:54] LABS: Glucose,Whole Blood 230 mg/dL (70-110)
[2023-02-25] MEDS: INSULIN ASPART (NovoLOG) 100 UNIT/ML VIAL SQ SCH (20:45)
[2023-02-26 08:12] LABS: Glucose,Whole Blood 136 mg/dL (70-110)
[2023-02-26] MEDS: INSULIN ASPART (NovoLOG) 100 UNIT/ML VIAL SQ SCH ×4 (08:15→20:47)
[2023-02-26] MEDS: ACETAMINOPHEN TAB 325 MG TAB PO PRN (08:42)
[2023-02-26] MEDS: NICOTINE 14MG/24HR PATCH TRANSDERM SCH (08:43)
--- NOTE | 2023-02-26 11:17 | P.HPIM ---
History of Present Illness H&P Date: 02/26/23 This is a 42-year-old male patient of Dr. Pradhan who presented with complaints of psychosis. Patient presented with multiple complaints including short-term memory loss intermittent lightheadedness and confusion. Patient admits to using methamphetamines and has stopped taking all home medications. Patient has a known past medical history of diabetes mellitus and essential hypertension. Patient has known drug use of methamphetamines and marijuana. Patient also has past history of anxiety and bipolar. Chest x-ray completed in the ER showing no acute cardiopulmonary process. Head CT completed showing no acute intracranial process. Patient reports chronic neck pain in which she has seen by specialist outpatient. Drug screen positive for amphetamines, methamphetamines and marijuana. Patient was admitted to the mental health unit. On exam patient denies any chest pain or shortness of breath. Patient denies urinary burning or frequency. Patient was started on sliding scale coverage. TSH also noted to be low at 0.286. Patient will need follow-up with endocrinology outpatient for further management Review of Systems Please refer to HPI otherwise unremarkable Past Medical History Past Medical History: Diabetes Mellitus, Hypertension History of Any Multi-Drug Resistant Organisms: None Reported Past Surgical History: Orthopedic Surgery Past Anesthesia/Blood Transfusion Reactions: No Reported Reaction Past Psychological History: No Psychological Hx Reported, Anxiety, Bipolar Smoking Status: Former smoker Past Alcohol Use History: Occasional Past Drug Use History: Marijuana, Methamphetamine Medications and Allergies Home Medications Medication Instructions Recorded Confirmed Type No Known Home Medications 02/24/23 02/24/23 History Allergies Allergy/AdvReac Type Severity Reaction Status Date / Time No Known Allergies Allergy Verified 02/24/23 22:38 Physical Exam Vitals: Vital Signs Temp Pulse Pulse Resp BP BP Pulse Ox 02/26/23 06:43 97.7 F 94 18 160/103 97 02/25/23 15:50 97.6 F 20 143/89 02/25/23 14:50 98.2 F 104 H 22 159/95 98 02/25/23 11:15 98.0 F 97 18 161/103 100 Intake and Output 02/25/23 02/26/23 02/26/23 22:59 06:59 14:59 Other: Weight 92.76 kg Head normocephalic Neck supple Lungs clear to auscultation bilaterally no wheezing or crackles Heart regular rate and rhythm S1-S2, no rub or gallop Abdomen is soft nontender nondistended positive bowel sounds no hepatosplenomegaly Extremities no edema Neuro alert and orientated to 3 Results CBC & Chem 7: 02/24/23 23:44 02/24/23 23:44 Labs: Abnormal Lab Results - Last 24 Hours (Table) 02/25/23 02/25/23 02/25/23 Range/Units 07:23 14:56 15:33 POC Glucose (mg/dL) 154 H 153 H (70-110) mg/dL Hemoglobin A1c (<=6.0) % TSH 0.286 L (0.350-5.500) UIU/ML 02/25/23 02/25/23 02/25/23 Range/Units 17:41 19:53 23:44 POC Glucose (mg/dL) 115 H 230 H (70-110) mg/dL Hemoglobin A1c 7.2 H (<=6.0) % TSH (0.350-5.500) UIU/ML 02/26/23 Range/Units 08:11 POC Glucose (mg/dL) 136 H (70-110) mg/dL Hemoglobin A1c (<=6.0) % TSH (0.350-5.500) UIU/ML Thrombosis Risk Factor Assmnt - Choose All That Apply Any of the Below Risk Factors Present?: Yes Each Factor Represents 1 point: Age 41-60 years Other Risk Factors: No Other congenital or acquired thrombophilia - If yes, enter type in comment: No Thrombosis Risk Factor Assessment Total Risk Factor Score: 1 Thrombosis Risk Factor Assessment Level: Low Risk Assessment and Plan Assessment: 1. Psychosis with methamphetamine use 2. Hyperthyroidism. TSH low at 0.286 patient will need follow-up outpatient with administrator social welfare 3. Diabetes mellitus with noncompliance with medication. Hemoglobin A1c 7.2 patient started on sliding scale coverage 4. Known drug use of methamphetamine and marijuana 5. History of essential hypertension 6. Chronic back pain 7. History of anxiety and bipolar Thank you for this consultation we will follow patient closely throughout stay
[2023-02-26] MEDS ORDERED: PALIPERIDONE 3 MG TAB.ER.24 PO ONE (11:52)
[2023-02-26] MEDS ORDERED: LORazepam 1 MG TAB PO PRN (11:54)
--- NOTE | 2023-02-26 12:10 | P.HP ---
Psychiatric H&P - . H&P Date: 02/26/23 History & Physical: Allergies Allergy/AdvReac Type Severity Reaction Status Date / Time No Known Allergies Allergy Verified 02/24/23 22:38 Vital Signs Temp 97.7 F 02/26/23 06:43 Pulse 94 02/26/23 06:43 Resp 18 02/26/23 06:43 BP 160/103 02/26/23 06:43 Pulse Ox 97 02/26/23 06:43 FiO2 Intake & Output 02/25/23 02/26/23 02/26/23 18:59 06:59 18:59 Weight 92.76 kg Laboratory Last Values WBC 10.7 k/uL (3.8-10.6) H 02/24/23 23:44 RBC 5.07 m/uL (4.30-5.90) 02/24/23 23:44 Hgb 14.1 gm/dL (13.0-17.5) 02/24/23 23:44 Hct 42.3 % (39.0-53.0) 02/24/23 23:44 MCV 83.4 fL (80.0-100.0) 02/24/23 23:44 MCH 27.7 pg (25.0-35.0) 02/24/23 23:44 MCHC 33.2 g/dL (31.0-37.0) 02/24/23 23:44 RDW 13.1 % (11.5-15.5) 02/24/23 23:44 Plt Count 251 k/uL (150-450) 02/24/23 23:44 MPV 7.5 02/24/23 23:44 Neutrophils % 62 % 02/24/23 23:44 Lymphocytes % 28 % 02/24/23 23:44 Monocytes % 7 % 02/24/23 23:44 Eosinophils % 1 % 02/24/23 23:44 Basophils % 1 % 02/24/23 23:44 Neutrophils # 6.6 k/uL (1.3-7.7) 02/24/23 23:44 Lymphocytes # 3.0 k/uL (1.0-4.8) 02/24/23 23:44 Monocytes # 0.8 k/uL (0-1.0) 02/24/23 23:44 Eosinophils # 0.1 k/uL (0-0.7) 02/24/23 23:44 Basophils # 0.1 k/uL (0-0.2) 02/24/23 23:44 Sodium 136 mmol/L (137-145) L 02/24/23 23:44 Potassium 4.0 mmol/L (3.5-5.1) 02/24/23 23:44 Chloride 102 mmol/L (98-107) 02/24/23 23:44 Carbon Dioxide 23 mmol/L (22-30) 02/24/23 23:44 Anion Gap 11 mmol/L 02/24/23 23:44 BUN 16 mg/dL (9-20) 02/24/23 23:44 Creatinine 1.05 mg/dL (0.66-1.25) 02/24/23 23:44 Est GFR (CKD-EPI)AfAm >90 (>60 ml/min/1.73 sqM) 02/24/23 23:44 Est GFR (CKD-EPI)NonAf 88 (>60 ml/min/1.73 sqM) 02/24/23 23:44 Glucose 104 mg/dL (74-99) H 02/24/23 23:44 POC Glucose (mg/dL) 136 mg/dL (70-110) H 02/26/23 08:11 POC Glu Ice Cream Server ID Corinne Grant 02/26/23 08:[address] Glu mg/dL 160 mg/dL 02/25/23 23:44 Hemoglobin A1c 7.2 % (<=6.0) H 02/25/23 23:44 Calcium 9.1 mg/dL (8.4-10.2) 02/24/23 23:44 Total Bilirubin 1.1 mg/dL (0.2-1.3) 02/24/23 23:44 AST 52 U/L (17-59) 02/24/23 23:44 ALT 50 U/L (4-49) H 02/24/23 23:44 Alkaline Phosphatase 50 U/L (38-126) 02/24/23 23:44 Total Protein 6.9 g/dL (6.3-8.2) 02/24/23 23:44 Albumin 4.3 g/dL (3.5-5.0) 02/24/23 23:44 TSH 0.286 UIU/ML (0.350-5.500) L 02/25/23 07:23 Urine Color Yellow 02/25/23 05:45 Urine Appearance Clear (Clear) 02/25/23 05:45 Urine pH 5.5 (5.0-8.0) 02/25/23 05:45 Ur Specific [place] 1.030 (1.001-1.035) 02/25/23 05:45 Urine Protein Trace (Negative) H 02/25/23 05:45 Urine Glucose (UA) Negative (Negative) 02/25/23 05:45 Urine Ketones 2+ (Negative) H 02/25/23 05:45 Urine Blood Negative (Negative) 02/25/23 05:45 Urine Nitrite Negative (Negative) 02/25/23 05:45 Urine Bilirubin Negative (Negative) 02/25/23 05:45 Urine Urobilinogen <2.0 mg/dL (<2.0) 02/25/23 05:45 Ur Leukocyte Esterase Negative (Negative) 02/25/23 05:45 Urine Opiates Screen Not Detected (NotDetected) 02/25/23 05:45 Ur Oxycodone Screen Not Detected (NotDetected) 02/25/23 05:45 Urine Methadone Screen Not Detected (NotDetected) 02/25/23 05:45 Ur Propoxyphene Screen Not Detected (NotDetected) 02/25/23 05:45 Ur Barbiturates Screen Not Detected (NotDetected) 02/25/23 05:45 U Tricyclic Antidepress Not Detected (NotDetected) 02/25/23 05:45 Ur Phencyclidine Scrn Not Detected (NotDetected) 02/25/23 05:45 Ur Amphetamines Screen Detected (NotDetected) H 02/25/23 05:45 U Methamphetamines Scrn Detected (NotDetected) H 02/25/23 05:45 U Benzodiazepines Scrn Not Detected (NotDetected) 02/25/23 05:45 Urine Cocaine Screen Not Detected (NotDetected) 02/25/23 05:45 U Marijuana (THC) Screen Detected (NotDetected) H 02/25/23 05:45 Serum Alcohol <10 mg/dL 02/25/23 00:00 SARS-CoV-2 (PCR) Not Detected (Not Detectd) 02/25/23 12:20 02/26/23 08:56 IDENTIFYING DATA: Patient is a 42-year-old male, lives in a house, alone. Single, no children. works at a welding shop, as a journeyman pipe welder. HPI: Patient presented to the hospital ED via his bike on February 25, as per EPS note, "Pt admit to using methamphetamines yesterday, 02/24/23. He initially stated that he was here because he needs help with his methamphetmine use and getting back on his psych medications. Pt initally denied SI, HI, or hallucinations. Once we started to discuss whether he had any paranoia his attitude seemed to change. He began a rant on how these people have been follow ing him for 2 years. "They are everywhere I go, atms, gas stations, they surround me". "I could point out at that parking lot who is following me". "They [place] tribe around my work place, they harass me, they are who I want to kill". "That is who I am homicidal towards, I would kill them all because they are stupid". Upon today's interview, patient states stressors include things such as he lost his job and health insurance, about 5 months ago, and quit taking all his meds, (psych, diabetes, etc.) Since then, he's gotten another job. Found father on the floor after not answering his phone calls after two days, and his father was very sick. Patient complains about severe body pain in his neck. Patient also claims he is anxious and depressed. Patient is very vague about his paranoid thoughts, and feels someone is coming after him. He states that his sleep is not very good, and his appetite is poor, because of his drug use. He presents as discheveld in appearance, irritable and agitated with blog writer. Interview ended because patient became became increasingly angry about his pain in his neck, and was yelling, and acting very hostile. He was demanding klonopin. Patient denies any suicidal or homicidal ideations intent or plan. At this time patient denies any auditory or visual hallucinations. Patient denies any flight of ideas racing thoughts. Patient admits to methamphetamine, cocaine, adderal, "stimulants" and marijuana use. Denies alcohol and nicotine. Was in [place] about a year ago but was unsuccessful. UDS was positive for methamphetamine and amphetamines and marijuana. Patient counseled on drug use, and encouraged to get help. PAST PSYCHIATRIC HISTORY: Patient states denies being on any psychiatric medications at this time. Patient states that he used to go to [facility], and was on abilify and celexa. states that they told him that he does not need to f/u any longer. States he was in [facility] about a year ago. denies any previous suicide attempts PMH: As per ED note ALLERGIES: as per EMR CHEMICAL DEPENDENCY HISTORY: as per HPI FAMILY PSYCHIATRIC/SUBSTANCE USE HISTORY: states "probably all of them" has psychiatric problems. SOCIAL HISTORY: Patient was born and raised in [place], [place]. Lives in his own home, by himself, and has no children. Not . States he has his GED, went through 11th grade in high school. Patient has an arrest record for indecent exposure, and has been in [facility]. Multiple arrests. MENTAL STATUS EXAM: General Appearance: Patient appears to be older than stated age is alert. Dishevelled , tattoos, hough. Average body type. Dressed in a hospital gown. undirectable, and does not attempts to cooperate. Patient appears to have poor hygiene and grooming. Behavior: Patient is seated with agitated behavior. Hostile. irritable Speech: Patient's speech is fluent and nonpressured. Loud, angry, demanding. Mood/Affect: Patient reports their mood is depressed/angry, affect is congruent and constricted. Suicidality/Homicidality: Patient denies having any homicidal ideation intent or plan. Denies any suicidal ideations intent or plan Perceptions: Patient denies any visual hallucinations and denies any auditory hallucinations Though content/process: There is no evidence of any delusional thought content and thought process is linear and goal-directed. demanding medications, threatneing. Memory and concentration: AOX3, grossly intact for the purposes of this session. Can spell "WORLD" backwards Judgment and insight: poor, impulsive. STRENGTHS/WEAKNESSES: strength is that patient is resilient. Weakness is that patient has poor judgment and is impulsive INTELLECT: average IMPRESSIONS: Psychosis unspecified Methamphetamine use disorder Stimulant abuse Cannabis use disorder PLAN: -Patient is admitted under voluntar status to [facility] for stabilization of psychiatric symptoms and safety. Patient has signed not signed an adult voluntary form or medication consentt. A second certification was completed and along with petition will be filed for court. -Medications : Will start patient on Invega 6mg qhs for psychosis/mood stabilization, trazadone 50mg qhs prn for sleep, Zoloft 50mg qd for mood/anxi ety, Buspar 10mg bid for anxiety. -Ativan [and Haldol] PRN for agitation/aggression -Patient was counselled on substance abuse and desired to cut back on use -Patient was informed of the risks, benefits and side effects of the medication and patient verbally consented to taking the medications. Patient did not sign med consent form and was placed in chart. -Internal Medicine consult to perform medical evaluation and physical. -NRT - nonsmoker -SW on board for discharge planning. Encourage patient to participate in groups to work on coping skills. Awaiting court date/deferral. will offer inpt rehab upon discharge 02/26/23 11:34 02/26/23 12:05
[2023-02-26] MEDS: SERTRALINE 50 MG TAB PO SCH (12:39)
[2023-02-26] MEDS: busPIRone HCl 10 MG TAB PO SCH ×2 (12:39→20:45)
[2023-02-26 12:43] LABS: Glucose,Whole Blood 121 mg/dL (70-110)
[2023-02-26 17:38] LABS: Glucose,Whole Blood 140 mg/dL (70-110)
[2023-02-26 20:13] LABS: Glucose,Whole Blood 146 mg/dL (70-110)
[2023-02-26] MEDS: PALIPERIDONE 6 MG TAB.ER.24 PO SCH (20:46)
[2023-02-27 07:58] LABS: Glucose,Whole Blood 164 mg/dL (70-110)
[2023-02-27] MEDS: INSULIN ASPART (NovoLOG) 100 UNIT/ML VIAL SQ SCH ×4 (08:13→20:04)
[2023-02-27] MEDS: NICOTINE 14MG/24HR PATCH TRANSDERM SCH (09:48)
[2023-02-27] MEDS: SERTRALINE 50 MG TAB PO SCH (09:49)
[2023-02-27] MEDS: busPIRone HCl 10 MG TAB PO SCH ×2 (09:49→20:04)
[2023-02-27] MEDS: amLODIPine 5 MG TAB PO SCH (09:49)
[2023-02-27] MEDS ORDERED: LORazepam 1 MG TAB PO PRN (12:00)
--- NOTE | 2023-02-27 12:03 | P.PN ---
Progress Note - Text Progress Note Date: 02/27/23 Interval History: Patient was seen bedside and was directable and agreeable to speak with keno writer/runner in the office. Today he says that he is doing "all right ". However, he admits to withdrawing from substances including methamphetamine. Therefore, he has mainly been resting. Patient appears sedated and says that he has been sleeping well. He denies concerns with medications and reports doing well on them so far. He reports low energy and low appetite. He received Ativan PO 2 mg late last night for anxiety but has not received any since then. At this time patient denies any suicidal or homicidal ideation, intent or plan. Patient denies any auditory, visual hallucinations and denies any paranoia or delusions. Patient denies any side effects from the medications and has been compliant with meds. Mental Status Exam: General Appearance: Patient appears to be older than stated age is alert. Disheveled , tattoos, hough. Average body type. Dressed in shirt and jeans. Behavior: Somnolent Speech: Patient's speech is fluent and nonpressured. Muttered Mood/Affect: Patient reports their mood is euthymic, affect is congruent and constricted. Suicidality/Homicidality: Patient denies having any homicidal ideation intent or plan. Denies any suicidal ideations intent or plan Perceptions: Patient denies any visual hallucinations and denies any auditory hallucinations Though content/process: There is no evidence of any delusional thought content and thought process is linear and goal-directed. Not currently demanding Memory and concentration: AOX3, grossly intact for the purposes of this session. Can spell "WORLD" backwards Judgment and insight: poor, impulsive. Assessment Psychosis unspecified Methamphetamine use disorder, in withdrawal Stimulant abuse Cannabis use disorder PLAN: -Patient is admitted under involuntary status to [facility]HU for stabilization of psychiatric symptoms and safety. A second certification was completed and along with petition will be filed for court. -Medications : Invega 6mg qhs for psychosis/mood stabilization, trazadone 50mg qhs prn for sleep, Zoloft 50mg qd for mood/anxiety, Buspar 10mg bid for anxiety. -Ativan and Haldol PRN for agitation/aggression -Patient was counselled on substance abuse and desired to cut back on use -Patient was informed of the risks, benefits and side effects of the medication and patient verbally consented to taking the medications. Patient did not sign med consent form and was placed in chart. -Internal Medicine consult to perform medical evaluation and physical. -NRT - nonsmoker -SW on board for discharge planning. Encourage patient to participate in groups to work on coping skills. Awaiting court date/deferral. will offer inpt rehab upon discharge
[2023-02-27 12:45] LABS: Glucose,Whole Blood 157 mg/dL (70-110)
[2023-02-27 17:40] LABS: Glucose,Whole Blood 140 mg/dL (70-110)
[2023-02-27] MEDS: METOPROLOL SUCCINATE (ER) 25 MG TAB.ER.24H PO SCH (18:54)
[2023-02-27 19:49] LABS: Glucose,Whole Blood 162 mg/dL (70-110)
[2023-02-27] MEDS: PALIPERIDONE 6 MG TAB.ER.24 PO SCH (20:04)
[2023-02-28 08:12] LABS: Glucose,Whole Blood 141 mg/dL (70-110)
[2023-02-28] MEDS: INSULIN ASPART (NovoLOG) 100 UNIT/ML VIAL SQ SCH ×4 (08:13→20:10)
[2023-02-28] MEDS: NICOTINE 14MG/24HR PATCH TRANSDERM SCH (08:14)
[2023-02-28] MEDS: amLODIPine 5 MG TAB PO SCH (08:14)
[2023-02-28] MEDS: METOPROLOL SUCCINATE (ER) 25 MG TAB.ER.24H PO SCH (08:14)
[2023-02-28] MEDS: busPIRone HCl 10 MG TAB PO SCH ×2 (08:14→20:10)
[2023-02-28] MEDS: SERTRALINE 50 MG TAB PO SCH (08:14)
[2023-02-28 12:45] LABS: Glucose,Whole Blood 141 mg/dL (70-110)
--- NOTE | 2023-02-28 12:55 | P.PN ---
Progress Note - Text Progress Note Date: 02/28/23 Interval History: Patient was seen bedside and was directable and agreeable to speak with short story writer. Today he says that his mood is "good ". He says that he has been sleeping too much. He says he should have gone to his PCP rather than come to the ED because he says he was hoping to be just placed on his original meds of Abilify, Celexa, and Buspar. Discussed that his current medication regimen is similar to those medications in that the medications are of similar categories. He reports low energy and improved appetite. He did not require any medication for agitation or anxiety in the past 24 hours. There were no overnight events. At this time patient denies any suicidal or homicidal ideation, intent or plan. Patient denies any auditory, visual hallucinations and denies any paranoia or delusions. Patient denies any side effects from the medications and has been compliant with meds. Mental Status Exam: General Appearance: Patient appears to be older than stated age is alert. Disheveled , tattoos, hough. Average body type. Behavior: Somnolent Speech: Patient's speech is fluent and nonpressured. Muttered Mood/Affect: Patient reports their mood is euthymic, affect is congruent and constricted. Suicidality/Homicidality: Patient denies having any homicidal ideation intent or plan. Denies any suicidal ideations intent or plan Perceptions: Patient denies any visual hallucinations and denies any auditory hallucinations Though content/process: There is no evidence of any delusional thought content and thought process is linear and goal-directed. Memory and concentration: AOX3, grossly intact for the purposes of this session. Can spell "WORLD" backwards Judgment and insight: poor, impulsive. Assessment Psychosis unspecified Methamphetamine use disorder, in withdrawal Stimulant abuse Cannabis use disorder PLAN: -Patient is admitted under involuntary status to [facility] for stabilization of psychiatric symptoms and safety. A second certification was completed and along with petition will be filed for court. -Medications : Invega 6mg qhs for psychosis/mood stabilization, stop trazadone 50mg qhs prn since he has been sleeping well, Zoloft 50mg qd for mood/anxiety, Buspar 10mg bid for anxiety. -Ativan PRN for agitation/aggression -Patient was counselled on substance abuse and desired to cut back on use -Patient was informed of the risks, benefits and side effects of the medication and patient verbally consented to taking the medications. Patient did not sign med consent form and was placed in chart. -Internal Medicine consult to perform medical evaluation and physical. -NRT - nonsmoker -SW on board for discharge planning. Encourage patient to participate in groups to work on coping skills. Awaiting court date/deferral. will offer inpt rehab upon discharge
[2023-02-28 17:38] LABS: Glucose,Whole Blood 111 mg/dL (70-110)
[2023-02-28 19:51] LABS: Glucose,Whole Blood 167 mg/dL (70-110)
[2023-02-28] MEDS: PALIPERIDONE 6 MG TAB.ER.24 PO SCH (20:10)
[2023-03-01] MEDS: METOPROLOL SUCCINATE (ER) 25 MG TAB.ER.24H PO SCH (07:11)
[2023-03-01] MEDS: amLODIPine 5 MG TAB PO SCH (07:11)
[2023-03-01] MEDS: INSULIN ASPART (NovoLOG) 100 UNIT/ML VIAL SQ SCH ×4 (07:58→20:07)
[2023-03-01 07:59] LABS: Glucose,Whole Blood 139 mg/dL (70-110)
[2023-03-01] MEDS: busPIRone HCl 10 MG TAB PO SCH ×2 (08:08→20:07)
[2023-03-01] MEDS: NICOTINE 14MG/24HR PATCH TRANSDERM SCH (08:08)
[2023-03-01] MEDS: SERTRALINE 50 MG TAB PO SCH (08:08)
--- NOTE | 2023-03-01 11:12 | P.PN ---
Progress Note - Text Progress Note Date: 03/01/23 Interval History: Patient was seen bedside and was directable and agreeable to speak with designer writer. Today he says that his mood is 'ok' and he is 'really tired, and don't feel like he's all there", and is feeling really, really down. Patient gets emotional when talking about talking to his mother on the phone. States his mood and anxiety are making him "feel like shit" States he's sleeping well, and his appetite is good. Talked to patient in length about stimulant use, and encouraged to abstain. Spoke with patient about the deferral process, and patient is agreeable to treatment. Awaiting attorneys visit today. At this time patient denies any suicidal or homicidal ideation, intent or plan. Patient denies any auditory, visual hallucinations and denies any paranoia or delusions. Patient denies any side effects from the medications and has been compliant with meds. Mental Status Exam: General Appearance: Patient appears to be older than stated age is alert. Disheveled , tattoos, hough. Average body type. Behavior: more cooperative today, improving mildly. Speech: Patient's speech is fluent and nonpressured. muttered, improving Mood/Affect: Patient reports their mood is "shit", affect is congruent and constricted. improving mildly Suicidality/Homicidality: Patient denies having any homicidal ideation intent or plan. Denies any suicidal ideations intent or plan Perceptions: Patient denies any visual hallucinations and denies any auditory hallucinations Though content/process: There is no evidence of any delusional thought content and thought process is linear and goal-directed. concrete. Memory and concentration: AOX3, grossly intact for the purposes of this session Judgment and insight: poor, impulsive, mildly improving. Assessment Psychosis unspecified Methamphetamine use disorder, in withdrawal Stimulant abuse Cannabis use disorder PLAN: -Patient is admitted under involuntary status to [facility] for stabilization of psychiatric symptoms and safety. A second certification was completed and along with petition will be filed for court. -Medications : decrease Invega 3mg qhs for psychosis/mood stabilization, increase Zoloft 75mg qhs for mood/anxiety, Buspar 10mg bid for anxiety. -Ativan PRN for agitation/aggression -NRT - nonsmoker -SW on board for discharge planning. Encourage patient to participate in groups to work on coping skills. Awaiting court date/deferral. Mold Washer will come today. will offer rehab upon discharge. Possible discharge wednesday/ if patient continues to improve.
[2023-03-01 12:51] LABS: Glucose,Whole Blood 107 mg/dL (70-110)
[2023-03-01 17:54] LABS: Glucose,Whole Blood 102 mg/dL (70-110)
[2023-03-01 19:52] LABS: Glucose,Whole Blood 190 mg/dL (70-110)
[2023-03-01] MEDS: PALIPERIDONE 3 MG TAB.ER.24 PO SCH (20:08)
[2023-03-01] MEDS: SERTRALINE 25 MG TAB PO SCH (20:08)
[2023-03-01] MEDS ORDERED: SERTRALINE 50 MG TAB PO SCH (21:00)
[2023-03-02] MEDS: METOPROLOL SUCCINATE (ER) 25 MG TAB.ER.24H PO SCH (06:27)
[2023-03-02] MEDS: amLODIPine 5 MG TAB PO SCH (06:27)
[2023-03-02 07:42] LABS: Glucose,Whole Blood 143 mg/dL (70-110)
[2023-03-02] MEDS: INSULIN ASPART (NovoLOG) 100 UNIT/ML VIAL SQ SCH ×4 (07:53→19:57)
[2023-03-02] MEDS: busPIRone HCl 10 MG TAB PO SCH ×2 (08:43→19:56)
[2023-03-02] MEDS: NICOTINE 14MG/24HR PATCH TRANSDERM SCH (08:44)
--- NOTE | 2023-03-02 09:56 | P.PN ---
Progress Note - Text Progress Note Date: 03/02/23 Interval History: Patient was seen in the hallway, and was directable and agreeable to speak with automatic typewriter inspector in the office. Today he says that his mood is 'pretty good" and better than yesterday. States his energy level is getting better, and his sleep is good, and his appetite is good. States his anxiety is getting better, and he feels like it's just stress, and it's 'nothing he can't handle" Patient deferred with his workers compensation defense attorney yesterday. At this time patient denies any suicidal or homicidal ideation, intent or plan. Patient denies any auditory, visual hallucinations and denies any paranoia or delusions. Patient denies any side effects from the medications and has been compliant with meds. Mental Status Exam: General Appearance: Patient appears to be older than stated age is alert, tattoos, hough. Average body type. Behavior: more cooperative today, improving. Speech: Patient's speech is fluent and nonpressured. muttered, improving Mood/Affect: Patient reports their mood is "better", affect is congruent, improving Suicidality/Homicidality: Patient denies having any homicidal ideation intent or plan. Denies any suicidal ideations intent or plan Perceptions: Patient denies any visual hallucinations and denies any auditory hallucinations Though content/process: There is no evidence of any delusional thought content and thought process is linear and goal-directed. concrete. Memory and concentration: AOX3, grossly intact for the purposes of this session Judgment and insight: improving mildly Assessment Psychosis unspecified Methamphetamine use disorder, in withdrawal Stimulant abuse Cannabis use disorder PLAN: -Patient is admitted under involuntary status to [facility] for stabilization of psychiatric symptoms and safety. A second certification was completed and along with petition will be filed for court. -Medications : Invega 3mg qhs for psychosis/mood stabilization, Zoloft 75mg qhs for mood/anxiety, Buspar 10mg bid for anxiety. -Ativan PRN for agitation/aggression -NRT - nonsmoker -SW on board for discharge planning. Encourage patient to participate in groups to work on coping skills. Patient deferred with his workers compensation defense attorney. Possible d/c tomorrow, if patient continues to improve.
[2023-03-02 12:40] LABS: Glucose,Whole Blood 118 mg/dL (70-110)
[2023-03-02] MEDS: METOPROLOL SUCCINATE (ER) 50 MG TAB.ER.24H PO SCH (14:08)
[2023-03-02] MEDS: ACETAMINOPHEN TAB 325 MG TAB PO PRN (16:54)
[2023-03-02 17:47] LABS: Glucose,Whole Blood 120 mg/dL (70-110)
[2023-03-02 19:57] LABS: Glucose,Whole Blood 133 mg/dL (70-110)
[2023-03-02] MEDS: SERTRALINE 25 MG TAB PO SCH (19:57)
[2023-03-02] MEDS: PALIPERIDONE 3 MG TAB.ER.24 PO SCH (19:57)
[2023-03-03 07:33] VITALS: BP 152/97; PULSE 87; RESP 16; TEMP 98
[2023-03-03 07:53] LABS: Glucose,Whole Blood 136 mg/dL (70-110)
[2023-03-03] MEDS: INSULIN ASPART (NovoLOG) 100 UNIT/ML VIAL SQ SCH (08:28)
[2023-03-03] MEDS: amLODIPine 5 MG TAB PO SCH (08:29)
[2023-03-03] MEDS: busPIRone HCl 10 MG TAB PO SCH (08:29)
[2023-03-03] MEDS: METOPROLOL SUCCINATE (ER) 50 MG TAB.ER.24H PO SCH (08:29)
[2023-03-03] MEDS: NICOTINE 14MG/24HR PATCH TRANSDERM SCH (08:30)
--- NOTE | 2023-03-03 10:06 | P.DS ---
Providers Date of admission: 02/25/23 14:07 Expected date of discharge: 03/03/23 Attending physician: Esteban Leblanc MD Consults: 02/25/23 14:35 Consult Physician Routine Consulting Provider: Tim Garcia Consult Reason/Comments: H&P Do you want consulting provider notified?: Yes Primary care physician: Angela Pradhan - Discharge Diagnosis(es) (1) Psychosis Current Visit: Yes Status: Acute Priority: High (2) Methamphetamine use disorder, moderate Current Visit: Yes Status: Acute Priority: High (3) Stimulant abuse Current Visit: Yes Status: Acute Priority: High (4) Cannabis use disorder Current Visit: Yes Status: Acute Priority: Medium Hospital Course: Admission HPI: Admission note was completed by designer/writer. Patient presented to the hospital ED via his bike on February 25, as per EPS note, "Pt admit to using methamphetamines yesterday, 02/24/23. He initially stated that he was here because he needs help with his methamphetmine use and getting back on his psych medications. Pt initally denied SI, HI, or hallucinations. Once we started to discuss whether he had any paranoia his attitude seemed to change. He began a rant on how these people have been following him for 2 years. "They are everywhere I go, atms, gas stations, they surround me". "I could point out at that parking lot who is following me". "They [place] around my work place, they h arass me, they are who I want to kill". "That is who I am homicidal towards, I would kill them all because they are stupid". Upon today's interview, patient states stressors include things such as he lost his job and health insurance, about 5 months ago, and quit taking all his meds, (psych, diabetes, etc.) Since then, he's gotten another job. Found father on the floor after not answering his phone calls after two days, and his father was very sick. Patient complains about severe body pain in his neck. Patient also claims he is anxious and depressed. Patient is very vague about his paranoid t houghts, and feels someone is coming after him. He states that his sleep is not very good, and his appetite is poor, because of his drug use. He presents as discheveld in appearance, irritable and agitated with designer/writer. Interview ended because patient became became increasingly angry about his pain in his neck, and was yelling, and acting very hostile. He was demanding klonopin. Patient denies any suicidal or homicidal ideations intent or plan. At this time patient denies any auditory or visual hallucinations. Patient denies any flight of ideas racing thoughts. Patient admits to methamphetamine, cocaine, adderal, "stimulants" and marijuana use. Denies alcohol and nicotine. Was in [place] about a year ago but was unsuccessful. UDS was positive for methamphetamine and amphetamines and marijuana. Patient counseled on drug use, and encouraged to get help. Hospital course: Upon admission to the unit patient was admitted involuntarily on a petition and certificate and a second certificate was completed and faxed with the courts. Patient ended up signing a deferral with the student life advisor and agreeing to treatment. Patient was initially irritable, agitated, going through substance withdrawal however with time and treatment he eventually got along well with other patients on the unit and followed unit protocol. Patient was compliant with the medications and denied any side effects throughout hospital course. Patient was started on paliperidone by mouth 3 mg daily at bedtime for psychosis/mood stabilization. Zoloft 100 mg daily at bedtime for mood/anxiety, BuSpar 10 mg twice a day for anxiety.. Patient spoke of his stressors and engaged in therapy both group and individual. Patient was also seen by medical team for history and physical exam. Throughout the course of the hospitalization patient gradually improved with regards to mood, anxiety, sleep and returned back to their baseline level of functioning. On the day of discharge patient denied any suicidal or homicidal ideations intent or plan denied any auditory or visual hallucinations. Patient endorsed wanting to live for his health and family. The patient denied any access to guns or weapons. Patient denied any paranoia and did not endorse any delusions. Patient does have a significant history of substance abuse and was counseled on abstaining from all substances including alcohol and marijuana. Patient was offered however declined inpatient substance- abuse rehab. Patient elected to do outpatient substance use treatment program through [facility]. Patient was also counseled on the medications and need for regular compliance and was encouraged to follow-up with their outpatient appointment for mental health and also for primary care. Prior to discharge a family meeting will be arranged by dialysis social worker to answer any questions and ensure safety upon discharge. Mental status exam: General Appearance: Patient appears to be unshaven, stated age is alert, pleasant, and cooperative. Patient is in no acute distress and has improved hygiene and grooming Behavior: Patient is calmly seated without any agitated behavior. Speech: Patient's speech is fluent and nonpressured. Mood/Affect: Patient reports their mood is "good", affect is congruent and euthymic. Suicidality/Homicidality: Patient denies having any suicidal or homicidal ideation intent or plan. Perceptions: Patient denies any auditory or visual hallucinations. Though content/process: There is no evidence of any delusional thought content and thought process is linear and goal-directed. more future oriented Memory and concentration: AOX3, grossly intact for the purposes of this session. Can spell "WORLD" backwards correctly. Judgment and insight: chronically poor, however has improved with guarded prognosis Impression: Psychosis unspecified Methamphetamine use disorder Stimulant abuse Cannabis use disorder Plan: -Continue with discharge today as patient has improved and stabilized psychiatrically and is not currently an imminent threat to himself and/or others. Patient will remain at chronically elevated risk for harm to self and/or others due to his impulsivity and polysubstance abuse. -Continue medications: Paliperidone by mouth 3 mg daily at bedtime for psychosis/mood stabilization, Zoloft 100 mg daily for mood/anxiety, BuSpar 10 mg twice a day for anxiety. -Patient was counseled on the need for medication compliance and appropriate follow-up at mental health and also primary care for medical issues. Patient verbalized understanding and agreed. -Social work to arrange for and conduct family meeting to ensure safety upon discharge and answer any questions/concerns. Social work also to arrange for patients follow up appointments for psychiatric care along with follow up with primary care provider. -Patient counseled on abstaining from recreational drugs and marijuana and alcohol. Was informed/educated on the adverse effects on their physical and mental health. Patient verbally agreed and understood. Patient was offered substance abuse treatment however declined at this time. -Patient was instructed to return to the hospital or seek immediate medical care if their psychiatric or medical symptoms do worsen or reoccur. Allergies Allergy/AdvReac Type Severity Reaction Status Date / Time No Known Allergies Allergy Verified 02/24/23 22:38 Laboratory Results WBC 10.7 k/uL (3.8-10.6) H 02/24/23 23:44 RBC 5.07 m/uL (4.30-5.90) 02/24/23 23:44 Hgb 14.1 gm/dL (13.0-17.5) 02/24/23 23:44 Hct 42.3 % (39.0-53.0) 02/24/23 23:44 MCV 83.4 fL (80.0-100.0) 02/24/23 23:44 MCH 27.7 pg (25.0-35.0) 02/24/23 23:44 MCHC 33.2 g/dL (31.0-37.0) 02/24/23 23:44 RDW 13.1 % (11.5-15.5) 02/24/23 23:44 Plt Count 251 k/uL (150-450) 02/24/23 23:44 MPV 7.5 02/24/23 23:44 Neutrophils % 62 % 02/24/23 23:44 Lymphocytes % 28 % 02/24/23 23:44 Monocytes % 7 % 02/24/23 23:44 Eosinophils % 1 % 02/24/23 23:44 Basophils % 1 % 02/24/23 23:44 Neutrophils # 6.6 k/uL (1.3-7.7) 02/24/23 23:44 Lymphocytes # 3.0 k/uL (1.0-4.8) 02/24/23 23:44 Monocytes # 0.8 k/uL (0-1.0) 02/24/23 23:44 Eosinophils # 0.1 k/uL (0-0.7) 02/24/23 23:44 Basophils # 0.1 k/uL (0-0.2) 02/24/23 23:44 Sodium 136 mmol/L (137-145) L 02/24/23 23:44 Potassium 4.0 mmol/L (3.5-5.1) 02/24/23 23:44 Chloride 102 mmol/L (98-107) 02/24/23 23:44 Carbon Dioxide 23 mmol/L (22-30) 02/24/23 23:44 Anion Gap 11 mmol/L 02/24/23 23:44 BUN 16 mg/dL (9-20) 02/24/23 23:44 Creatinine 1.05 mg/dL (0.66-1.25) 02/24/23 23:44 Est GFR (CKD-EPI)AfAm >90 (>60 ml/min/1.73 sqM) 02/24/23 23:44 Est GFR (CKD-EPI)NonAf 88 (>60 ml/min/1.73 sqM) 02/24/23 23:44 Glucose 104 mg/dL (74-99) H 02/24/23 23:44 POC Glucose (mg/dL) 136 mg/dL (70-110) H 03/03/23 07:51 POC Glu Chicken Sexer ID Rayna Khan 03/03/23 07:[address] Glu mg/dL 160 mg/dL 02/25/23 23:44 Hemoglobin A1c 7.2 % (<=6.0) H 02/25/23 23:44 Calcium 9.1 mg/dL (8.4-10.2) 02/24/23 23:44 Total Bilirubin 1.1 mg/dL (0.2-1.3) 02/24/23 23:44 AST 52 U/L (17-59) 02/24/23 23:44 ALT 50 U/L (4-49) H 02/24/23 23:44 Alkaline Phosphatase 50 U/L (38-126) 02/24/23 23:44 Total Protein 6.9 g/dL (6.3-8.2) 02/24/23 23:44 Albumin 4.3 g/dL (3.5-5.0) 02/24/23 23:44 TSH 0.286 UIU/ML (0.350-5.500) L 02/25/23 07:23 Urine Color Yellow 02/25/23 05:45 Urine Appearance Clear (Clear) 02/25/23 05:45 Urine pH 5.5 (5.0-8.0) 02/25/23 05:45 Ur Specific [place] 1.030 (1.001-1.035) 02/25/23 05:45 Urine Protein Trace (Negative) H 02/25/23 05:45 Urine Glucose (UA) Negative (Negative) 02/25/23 05:45 Urine Ketones 2+ (Negative) H 02/25/23 05:45 Urine Blood Negative (Negative) 02/25/23 05:45 Urine Nitrite Negative (Negative) 02/25/23 05:45 Urine Bilirubin Negative (Negative) 02/25/23 05:45 Urine Urobilinogen <2.0 mg/dL (<2.0) 02/25/23 05:45 Ur Leukocyte Esterase Negative (Negative) 02/25/23 05:45 Urine Opiates Screen Not Detected (NotDetected) 02/25/23 05:45 Ur Oxycodone Screen Not Detected (NotDetected) 02/25/23 05:45 Urine Methadone Screen Not Detected (NotDetected) 02/25/23 05:45 Ur Propoxyphene Screen Not Detected (NotDetected) 02/25/23 05:45 Ur Barbiturates Screen Not Detected (NotDetected) 02/25/23 05:45 U Tricyclic Antidepress Not Detected (NotDetected) 02/25/23 05:45 Ur Phencyclidine Scrn Not Detected (NotDetected) 02/25/23 05:45 Ur Amphetamines Screen Detected (NotDetected) H 02/25/23 05:45 U Methamphetamines Scrn Detected (NotDetected) H 02/25/23 05:45 U Benzodiazepines Scrn Not Detected (NotDetected) 02/25/23 05:45 Urine Cocaine Screen Not Detected (NotDetected) 02/25/23 05:45 U Marijuana (THC) Screen Detected (NotDetected) H 02/25/23 05:45 Serum Alcohol <10 mg/dL 02/25/23 00:00 SARS-CoV-2 (PCR) Not Detected (Not Detectd) 02/25/23 12:20 Vital Signs Temp 98 F 03/03/23 06:56 Pulse 87 03/03/23 06:56 Resp 16 03/03/23 06:56 BP 152/97 03/03/23 06:56 Pulse Ox 97 02/26/23 06:43 FiO2 Health Concerns: Pt is to follow up with Endocrinology post hospitalization per medical doctors recommendation. Patient Condition at Discharge: Stable Plan - Discharge Summary Discharge Rx Participant: No New Discharge Prescriptions: New busPIRone HCl [Buspar] 10 mg PO BID 60 Days #60 tab Paliperidone [Invega] 3 mg PO HS 30 Days #30 cap INSULIN ASPART (NovoLOG) [NovoLOG (formulary)] 0 unit SQ ACHS each amLODIPine [Norvasc] 5 mg PO DAILY 30 Days #30 tab Metoprolol Succinate (ER) [Toprol XL] 50 mg PO DAILY 30 Days #30 tab Sertraline [Zoloft] 100 mg PO DAILY 30 Days #30 tab Discharge Medication List INSULIN ASPART (NovoLOG) [NovoLOG (formulary)] 0 unit SQ ACHS each 03/03/23 [Rx] Metoprolol Succinate (ER) [Toprol XL] 50 mg PO DAILY 30 Days #30 tab 03/03/23 [Rx] Paliperidone [Invega] 3 mg PO HS 30 Days #30 cap 03/03/23 [Rx] Sertraline [Zoloft] 100 mg PO DAILY 30 Days #30 tab 03/03/23 [Rx] amLODIPine [Norvasc] 5 mg PO DAILY 30 Days #30 tab 03/03/23 [Rx] busPIRone HCl [Buspar] 10 mg PO BID 60 Days #60 tab 03/03/23 [Rx] Follow up Appointment(s)/Referral(s): [facility] [Outside] - 03/03/23 9:30 am (with intake) Angela Pradhan MD [Primary Care Provider] - 1-2 days Activity/Diet/Wound Care/Special Instructions: Avoid the use of street drugs and alcohol. Take all medications as prescribed. When you are in need of refills on your medications, please contact your medical provider and/or outpatient psychiatrist/provider to have this done. Please go to your scheduled outpatient appointment for aftercare treatment. If symptoms return or become worse, call the crisis line at and/or go to the nearest emergency room for evaluation. National Suicide Hotline 162. Discharge Disposition: HOME SELF-CARE
--- NOTE | 2023-03-03 11:13 | P.PN ---
Subjective Progress Note Date: 03/03/23 This is a 42-year-old male patient of Dr. Pradhan who presented with complaints of psychosis. Patient presented with multiple complaints including short-term memory loss intermittent lightheadedness and confusion. Patient admits to using methamphetamines and has stopped taking all home medications. Patient has a known past medical history of diabetes mellitus and essential hypertension. Patient has known drug use of methamphetamines and marijuana. Patient also has past history of anxiety and bipolar. Chest x-ray completed in the ER showing no acute cardiopulmonary process. Head CT completed showing no acute intracranial process. Patient reports chronic neck pain in which she has seen by specialist outpatient. Drug screen positive for amphetamines, methamphetamines and marijuana. Patient was admitted to the mental health unit. On exam patient denies any chest pain or shortness of breath. Patient denies urinary burning or frequency. Patient was started on sliding scale coverage. TSH also noted to be low at 0.286. Patient will need follow-up with endocrinology outpatient for fur ther management On 03/03/2023 patient is alert and oriented 3. Patient will be discharged today per psychiatry from mental health unit. During hospital stay patient had elevated blood pressure and was started on Norvasc Metroprolol losartan. Patient also noted to have hemoglobin A1c of 7.2 patient will be discharged on metformin. Advised patient on medication changes and advised patient the importance of medical compliance patient also to follow up with PCP for endocrine referral due to TSH level of 0.286. Objective - Vital Signs Vital signs: Vital Signs Temp 98 F 03/03/23 06:56 Pulse 87 03/03/23 06:56 Resp 16 03/03/23 06:56 BP 152/97 03/03/23 06:56 Pulse Ox 97 02/26/23 06:43 FiO2 - Exam Head normocephalic Neck supple Lungs clear to auscultation bilaterally no wheezing or crackles Heart regular rate and rhythm S1-S2, no rub or gallop Abdomen is soft nontender nondistended positive bowel sounds no hepatosplenomegaly Extremities no edema Neuro alert and orientated to 3 - Labs CBC & Chem 7: 02/24/23 23:44 02/24/23 23:44 Labs: Abnormal Lab Results - Last 24 Hours (Table) 03/02/23 03/02/23 03/02/23 Range/Units 12:39 17:46 19:55 POC Glucose (mg/dL) 118 H 120 H 133 H (70-110) mg/dL 03/03/23 Range/Units 07:51 POC Glucose (mg/dL) 136 H (70-110) mg/dL Assessment and Plan Assessment: 1. Psychosis with methamphetamine use 2. Hyperthyroidism. TSH low at 0.286 patient will need follow-up outpatient with chairman & chief executive officer 3. Diabetes mellitus with noncompliance with medication. Hemoglobin A1c 7.2 patient started on sliding scale coverage. Patient will be DC'd on metformin 4. Known drug use of methamphetamine and marijuana 5. History of essential hypertension 6. Chronic back pain 7. History of anxiety and bipolar 8. Essential hypertension patient will has been started on Norvasc Metroprolol and losartan Thank you for this consultation we will follow patient closely throughout stay Patient will need close follow up with PCP for further management of chronic conditions
[2023-03-04] MEDS ORDERED: metFORMIN 500 MG TAB PO SCH (07:30)
[2023-03-04] MEDS ORDERED: LOSARTAN 25 MG TAB PO SCH (09:00)
== END 2023-03-03 12:32 | disposition home or self-care (01) | DRG 897 ==
LOC: EC 20:49 → 3MHU 02-25 14:07
PROVIDERS: ADMIT Psychiatry & Neurology Psychiatry; ATTEND Psychiatry & Neurology Psychiatry
DX: F15.259 Other stimulant dependence with stimulant-induced psychotic disorder, unspecified (principal); Z59.00 Homelessness unspecified; E11.9 Type 2 diabetes mellitus without complications; I10 Essential (primary) hypertension; F15.23 Other stimulant dependence with withdrawal; E05.90 Thyrotoxicosis, unspecified without thyrotoxic crisis or storm; G89.29 Other chronic pain; M54.9 Dorsalgia, unspecified; R45.850 Homicidal ideations; R45.1 Restlessness and agitation; F41.9 Anxiety disorder, unspecified; F31.9 Bipolar disorder, unspecified; F12.10 Cannabis abuse, uncomplicated; Z91.148 Patient's other noncompliance with medication regimen for other reason; Z87.891 Personal history of nicotine dependence; Z11.52 Encounter for screening for COVID-19; Z28.310 Unvaccinated for COVID-19; Z71.41 Alcohol abuse counseling and surveillance of alcoholic; Z71.51 Drug abuse counseling and surveillance of drug abuser
CPT/HCPCS: 36415; 70450; 71046; 80053; 80306; 80320; 81003; 82075; 83036; 84443; 85025; 87635; 93005; 96361; 96374; 99285

== ENCOUNTER 2023-09-07 10:22 | Emergency (ER) | payer BC, OTHER ==
[2023-09-07 10:29] VITALS: TEMP 98.7
[2023-09-07 10:58] LABS: Glucose,Whole Blood 326 mg/dL (70-110)
[2023-09-07 11:44] LABS: Basophils # (A) 0.1 k/uL (0-0.2); Basophils % (A) 1 %; Eosinophils # (A) 0.1 k/uL (0-0.7); Eosinophils % (A) 1 %; HCT 45.4 % (39.0-53.0); HGB 15.3 gm/dL (13.0-17.5); Lymphocytes # (A) 1.3 k/uL (1.0-4.8); Lymphocytes % (A) 21 %; MCH 26.8 pg (25.0-35.0); MCHC 33.6 g/dL (31.0-37.0); MCV 79.7 fL (80.0-100.0); Mean Platelet Volume 8.6; Monocytes # (A) 0.3 k/uL (0-1.0); Monocytes % (A) 4 %; Neutrophils # (A) 4.4 k/uL (1.3-7.7); Neutrophils % (A) 70 %; Platelet Count 174 k/uL (150-450); RBC 5.69 m/uL (4.30-5.90); RDW 13.5 % (11.5-15.5); WBC 6.2 k/uL (3.8-10.6)
[2023-09-07 11:54] LABS: ALT 29 U/L (4-49); African American GFR (CKD) >90 (>60 ml/min/1.73 sqM); Anion Gap 9 mmol/L; Blood Urea Nitrogen 10 mg/dL (9-20); Calcium 9.5 mg/dL (8.4-10.2); Carbon Dioxide 23 mmol/L (22-30); Chloride 102 mmol/L (98-107); Glucose 313 mg/dL (74-99); Lipase 75 U/L (23-300); Non-African American GFR(CKD) >90 (>60 ml/min/1.73 sqM); Sodium 134 mmol/L (137-145)
[2023-09-07 12:01] LABS: Albumin 4.5 g/dL (3.5-5.0); Potassium 4.7 mmol/L (3.5-5.1)
[2023-09-07 12:02] LABS: AST 34 U/L (17-59); Alkaline Phosphatase 51 U/L (38-126); Total Bilirubin 1.1 mg/dL (0.2-1.3); Total Protein 7.7 g/dL (6.3-8.2)
[2023-09-07] MEDS: LABETALOL 5 MG/ML VIAL MDV IVP STA (12:10)
[2023-09-07] MEDS: SODIUM CHLORIDE 0.9% 2,000 ML IV STA (12:10)
[2023-09-07 12:55] VITALS: RESP 18
--- NOTE | 2023-09-07 12:55 | ED ---
General Adult HPI - General Chief complaint: Recheck/Abnormal Lab/Rx Stated complaint: Hyperglycemic/HTN Time Seen by Provider: 09/07/23 10:46 Source: patient, RN notes reviewed Mode of arrival: ambulatory Limitations: no limitations - History of Present Illness Initial comments: 43-year-old male presents emergency department via private vehicle from urgent care for evaluation of hypertension and hyperglycemia. Patient has been out of his medication he states that he missed his appointment with his PCP and was told he needed blood work. He states he followed up with urgent care who sent meds in but he states they wanted to come over here to be evaluated. He denies any chest pain denies any shortness of breath denies any fevers or chills states his heart feels like it has been racing but has been more thirsty recently. Patient denies any abdominal pain no other acute symptoms. - Related Data Home Medications Medication Instructions Recorded Confirmed Insulin Aspart [NovoLOG Flexpen] 6 units SQ AC-TID 09/07/23 09/07/23 Insulin Aspart [NovoLOG Flexpen] See Protocol SQ AC-TID 09/07/23 09/07/23 Insulin Detemir [Levemir Flexpen] 12 units SQ BID 09/07/23 09/07/23 Sertraline [Zoloft] 100 mg PO HS 09/07/23 09/07/23 busPIRone HCl [Buspar] 10 mg PO BID PRN 09/07/23 09/07/23 risperiDONE [RisperDAL] 3 mg PO HS 09/07/23 09/07/23 Allergies Allergy/AdvReac Type Severity Reaction Status Date / Time steroids AdvReac blood Uncoded 09/07/23 11:50 sugar increased Review of Systems ROS Statement: Those systems with pertinent positive or pertinent negative responses have been documented in the HPI. ROS Other: All systems not noted in ROS Statement are negative. Past Medical History Past Medical History: Diabetes Mellitus, Hypertension History of Any Multi-Drug Resistant Organisms: None Reported Past Surgical History: Orthopedic Surgery Past Anesthesia/Blood Transfusion Reactions: No Reported Reaction Past Psychological History: No Psychological Hx Reported, Anxiety, Bipolar Smoking Status: Former smoker Past Alcohol Use History: Rare Past Drug Use History: Marijuana, Methamphetamine General Exam Limitations: no limitations General appearance: alert, in no apparent distress Head exam: Present: atraumatic, normocephalic, normal inspection Eye exam: Present: normal appearance, PERRL, EOMI. Absent: scleral icterus, conjunctival injection, periorbital swelling ENT exam: Present: normal exam, normal oropharynx, mucous membranes moist Neck exam: Present: normal inspection, full ROM. Absent: tenderness, meningismus, lymphadenopathy Respiratory exam: Present: normal lung sounds bilaterally. Absent: respiratory distress, wheezes, rales, rhonchi, stridor Cardiovascular Exam: Present: normal rhythm, tachycardia, normal heart sounds. Absent: systolic murmur, diastolic murmur, rubs, gallop, clicks GI/Abdominal exam: Present: soft, normal bowel sounds. Absent: distended, tenderness, guarding, rebound, rigid Course Vital Signs 09/07/23 09/07/23 09/07/23 10:24 12:10 12:55 Temperature 98.7 F Pulse Rate 124 H 98 95 Respiratory 20 18 18 Rate Blood Pressure 167/112 173/120 143/112 O2 Sat by Pulse 97 98 Oximetry EKG Findings - EKG Comments: EKG Findings:: EKG performed 11: 08 sinus tachycardia rate of 108 ND 124 QRS 100 QT/QTc 325/388 - EKG Results: EKG: interpreted by LORETTA Medical Decision Making - Medical Decision Making Was pt. sent in by a medical professional or institution (, PA, AIRCRAFT CAPTAIN, urgent care, hospital, or half-way...) When possible be specific @ -Urgent care Did you speak to anyone other than the patient for history (EMS, parent, family, police, friend...)? What history was obtained from this source @ -No Did you review nursing and triage notes (agree or disagree)? Why? @ -I reviewed and agree with nursing and triage notes Were old charts reviewed (outside hosp., previous admission, EMS record, old EKG, old radiological studies, urgent care reports/EKG's, half-way records)? Report findings @ -No old charts were reviewed Differential Diagnosis (chest pain, altered mental status, abdominal pain women, abdominal pain men, vaginal bleeding, weakness, fever, dyspnea, syncope, headache, dizziness, GI bleed, back pain, seizure, CVA, palpatations, mental health, musculoskeletal)? @ -Hypertension, diabetes, hyperglycemia, medication noncompliance EKG interpreted by me (3pts min.). @ -As above X-rays interpreted by me (1pt min.). @ -None done CT interpreted by me (1pt min.). @ -None done U/S interpreted by me (1pt. min.). @ -None done What testing was considered but not performed or refused? (CT, X-rays, U/S, labs)? Why? @ -None What meds were considered but not given or refused? Why? @ -None Did you discuss the management of the patient with other professionals (professionals i.e. DrThong, PA, AIRCRAFT CAPTAIN, lab, RT, psych nurse, clinical social worker, electronic plotting system operator, teacher, probation officer, porter sample case)? Give summary @ -No Was smoking cessation discussed for >3mins.? @ -No Was critical care preformed (if so, how long)? @ -No Were there social determinants of health that impacted care today? How? (Homelessness, low income, unemployed, alcoholism, drug addiction, transportation, low edu. Level, literacy, decrease access to med. care, long-term, rehab)? @ -No Was there de-escalation of care discussed even if they declined (Discuss DNR or withdrawal of care, Hospice)? DNR status @ -No What co-morbidities impacted this encounter? (DM, HTN, Smoking, COPD, CAD, Ca ncer, CVA, ARF, Chemo, Hep., AIDS, mental health diagnosis, sleep apnea, morbid obesity)? @ -Diabetes, hypertension Was patient admitted / discharged? Hospital course, mention meds given and route, prescriptions, significant lab abnormalities, going to OR and other pertinent info. @ -Patient against medical medical advice prior to treatment and Undiagnosed new problem with uncertain prognosis? @ -No Drug Therapy requiring intensive monitoring for toxicity (Heparin, Nitro, Insulin, Cardizem)? @ -No Were any procedures done? @ -No Diagnosis/symptom? @ - diabetes, hypertension Acute, or Chronic, or Acute on Chronic? @ -Acute Uncomplicated (without systemic symptoms) or Complicated (systemic symptoms)? @Complicated Side effects of treatment? @ -No Exacerbation, Progression, or Severe Exacerbation? @ -No Poses a threat to life or bodily function? How? (Chest pain, [place], [place], pneumonia, PE, COPD, DKA, ARF, appy, cholecystitis, CVA, Diverticulitis, Homicidal, Suicidal, threat to staff... and all critical care pts) @ -Yes patient is noncompliant hypertension diabetic - Lab Data Result diagrams: 09/07/23 11:05 09/07/23 11:05 Lab Results 09/07/23 09/07/23 09/07/23 Range/Units 10:56 11:05 11:05 WBC 6.2 (3.8-10.6) k/uL RBC 5.69 (4.30-5.90) m/uL Hgb 15.3 (13.0-17.5) gm/dL Hct 45.4 (39.0-53.0) % MCV 79.7 L (80.0-100.0) fL MCH 26.8 (25.0-35.0) pg MCHC 33.6 (31.0-37.0) g/dL RDW 13.5 (11.5-15.5) % Plt Count 174 (150-450) k/uL MPV 8.6 Neutrophils % 70 % Lymphocytes % 21 % Monocytes % 4 % Eosinophils % 1 % Basophils % 1 % Neutrophils # 4.4 (1.3-7.7) k/uL Lymphocytes # 1.3 (1.0-4.8) k/uL Monocytes # 0.3 (0-1.0) k/uL Eosinophils # 0.1 (0-0.7) k/uL Basophils # 0.1 (0-0.2) k/uL Sodium 134 L (137-145) mmol/L Potassium 4.7 (3.5-5.1) mmol/L Chloride 102 (98-107) mmol/L Carbon Dioxide 23 (22-30) mmol/L Anion Gap 9 mmol/L BUN 10 (9-20) mg/dL Creatinine 0.59 L (0.66-1.25) mg/dL Est GFR (CKD-EPI)AfAm >90 (>60 ml/min/1.73 sqM) Est GFR (CKD-EPI)NonAf >90 (>60 ml/min/1.73 sqM) Glucose 313 H (74-99) mg/dL POC Glucose (mg/dL) 326 H (70-110) mg/dL POC Glu Tracer Bullet Charging Machine Operator Erica Barajas Plasma Lactic Acid Nam (0.7-2.0) mmol/L Calcium 9.5 (8.4-10.2) mg/dL Total Bilirubin 1.1 (0.2-1.3) mg/dL AST 34 (17-59) U/L ALT 29 (4-49) U/L Alkaline Phosphatase 51 (38-126) U/L Total Protein 7.7 (6.3-8.2) g/dL Albumin 4.5 (3.5-5.0) g/dL Lipase 75 (23-300) U/L Acetone, Qual Negative (Negative) 09/07/23 Range/Units 11:05 WBC (3.8-10.6) k/uL RBC (4.30-5.90) m/uL Hgb (13.0-17.5) gm/dL Hct (39.0-53.0) % MCV (80.0-100.0) fL MCH (25.0-35.0) pg MCHC (31.0-37.0) g/dL RDW (11.5-15.5) % Plt Count (150-450) k/uL MPV Neutrophils % % Lymphocytes % % Monocytes % % Eosinophils % % Basophils % % Neutrophils # (1.3-7.7) k/uL Lymphocytes # (1.0-4.8) k/uL Monocytes # (0-1.0) k/uL Eosinophils # (0-0.7) k/uL Basophils # (0-0.2) k/uL Sodium (137-145) mmol/L Potassium (3.5-5.1) mmol/L Chloride (98-107) mmol/L Carbon Dioxide (22-30) mmol/L Anion Gap mmol/L BUN (9-20) mg/dL Creatinine (0.66-1.25) mg/dL Est GFR (CKD-EPI)AfAm (>60 ml/min/1.73 sqM) Est GFR (CKD-EPI)NonAf (>60 ml/min/1.73 sqM) Glucose (74-99) mg/dL POC Glucose (mg/dL) (70-110) mg/dL POC Glu Tracer Bullet Charging Machine Operator ID Plasma Lactic Acid Nam 2.7 H* (0.7-2.0) mmol/L Calcium (8.4-10.2) mg/dL Total Bilirubin (0.2-1.3) mg/dL AST (17-59) U/L ALT (4-49) U/L Alkaline Phosphatase (38-126) U/L Total Protein (6.3-8.2) g/dL Albumin (3.5-5.0) g/dL Lipase (23-300) U/L Acetone, Qual (Negative) Disposition Clinical Impression: Hypertension, Diabetes, History of medication noncompliance Disposition: LEFT AGAINST MEDICAL ADVICE Referrals: Angela Pradhan MD [Primary Care Provider] - 1-2 days Time of Disposition: 12:55
[2023-09-07] MEDS: hydrALAZINE HCL 20 MG/ML 1 ML VIAL IVP STA (13:01)
[2023-09-07 13:36] VITALS: BP 157/116
[2023-09-07 13:49] VITALS: PULSE 94
== END 2023-09-07 13:56 | disposition left against medical advice (07) ==
LOC: EC 10:22
DX: E11.65 Type 2 diabetes mellitus with hyperglycemia (principal); I10 Essential (primary) hypertension; Z91.148 Patient's other noncompliance with medication regimen for other reason; I45.10 Unspecified right bundle-branch block; F12.90 Cannabis use, unspecified, uncomplicated; F15.90 Other stimulant use, unspecified, uncomplicated; Z87.891 Personal history of nicotine dependence; Z88.8 Allergy status to other drugs, medicaments and biological substances; Z53.29 Procedure and treatment not carried out because of patient's decision for other reasons
CPT/HCPCS: 36415; 93005; 80053; 82009; 83605; 83690; 85025; 99284; 96374; 96375; 96361 ×2; J0360; J1920

== ENCOUNTER 2024-03-26 17:23 | Emergency (ER) | payer BC, OTHER ==
--- NOTE | 2024-03-26 17:50 | ED ---
SOB HPI - General Source: patient, RN notes reviewed Mode of arrival: ambulatory Limitations: no limitations - History of Present Illness MD Complaint: cough Onset/Timin -: week(s) <Mike Cyr - Last Filed: 03/26/24 17:47> - General Source: patient, RN notes reviewed, old records reviewed Mode of arrival: ambulatory Limitations: no limitations - History of Present Illness MD Complaint: cough -: week(s) Radiation: back Severity: moderate Severity scale (1-10): 4 Quality: dull Consistency: constant Improves With: oxygen Worsens With: exertion Known History Of: COPD, asthma Context: recent URI, recent illness Associated Symptoms: denies other symptoms <Osei Ferreira - Last Filed: 03/26/24 21:52> - General Chief Complaint: Shortness of Breath Stated Complaint: sob, [place] Time Seen by Provider: 03/26/24 17:40 - History of Present Illness Initial Comments: Quick note: This is a 44-year-old male presenting with sick symptoms x 3 weeks. Patient endorses cough with chest congestion and nausea/vomiting with associated dizziness and, vomiting. States he was diagnosed with pneumonia and had a clinic 1 week ago, receiving doxycycline with minimal relief. Denies fever, chills, chest pain, dyspnea, abdominal pain, hematemesis, diarrhea, constipation. (Mike Cyr) This is a 44-year-old male to ER for not feeling well for couple weeks now with the start doxycycline for pneumonia but no other complaint (Osei Ferreira) - Related Data Home Medications Medication Instructions Recorded Confirmed Insulin Aspart [NovoLOG Flexpen] 6 units SQ AC-TID 09/07/23 09/07/23 Insulin Aspart [NovoLOG Flexpen] See Protocol SQ AC-TID 09/07/23 09/07/23 Insulin Detemir [Levemir Flexpen] 12 units SQ BID 09/07/23 09/07/23 Sertraline [Zoloft] 100 mg PO HS 09/07/23 09/07/23 busPIRone HCl [Buspar] 10 mg PO BID PRN 09/07/23 09/07/23 risperiDONE [RisperDAL] 3 mg PO HS 09/07/23 09/07/23 Previous Rx's Medication Instructions Recorded Amoxic-Pot Clav 875-125Mg 1 tab PO Q12HR #20 tablet 03/26/24 [Augmentin 875-125] Allergies Allergy/AdvReac Type Severity Reaction Status Date / Time steroids AdvReac blood Uncoded 03/26/24 17:45 sugar increased Review of Systems ROS Other: All systems not noted in ROS Statement are negative. <Mike Cyr - Last Filed: 03/26/24 17:47> ROS Other: All systems not noted in ROS Statement are negative. <Osei Ferreira - Last Filed: 03/26/24 21:52> ROS Statement: Those systems with pertinent positive or pertinent negative responses have been documented in the HPI. Past Medical History Past Medical History: Diabetes Mellitus, Hypertension History of Any Multi-Drug Resistant Organisms: None Reported Past Surgical History: Orthopedic Surgery Past Anesthesia/Blood Transfusion Reactions: No Reported Reaction Past Psychological History: No Psychological Hx Reported, Anxiety, Bipolar Smoking Status: Former smoker Past Alcohol Use History: Rare Past Drug Use History: Marijuana, Methamphetamine <GerMike - Last Filed: 03/26/24 17:47> General Exam Limitations: no limitations <Mike Cyr - Last Filed: 03/26/24 17:47> General appearance: alert, in no apparent distress Head exam: Present: atraumatic, normocephalic, normal inspection Eye exam: Present: normal appearance, PERRL, EOMI. Absent: scleral icterus, conjunctival injection, periorbital swelling ENT exam: Present: normal exam, mucous membranes moist Neck exam: Present: normal inspection. Absent: tenderness, meningismus, lymphadenopathy Respiratory exam: Present: normal lung sounds bilaterally. Absent: respiratory distress, wheezes, rales, rhonchi, stridor Cardiovascular Exam: Present: regular rate, normal rhythm, normal heart sounds. Absent: systolic murmur, diastolic murmur, rubs, gallop, clicks GI/Abdominal exam: Present: soft, normal bowel sounds. Absent: distended, tenderness, guarding, rebound, rigid Extremities exam: Present: normal inspection, full ROM, normal capillary refill. Absent: tenderness, pedal edema, joint swelling, calf tenderness Back exam: Present: normal inspection Neurological exam: Present: alert, oriented X3, CN II-XII intact Psychiatric exam: Present: normal affect, normal mood Skin exam: Present: warm, dry, intact, normal color. Absent: rash <Osei Ferreira - Last Filed: 03/26/24 21:52> - General Exam Comments Initial Comments: Visual Physical Exam Vital signs reviewed General: Well-appearing, nontoxic, no acute distress. Head: Normocephalic, atraumatic Eyes: PERRLA, EOMI ENT: Airway patent Chest: Nonlabored breathing Skin: No visual rash, normal skin tone Neuro: Alert and oriented 3 Musculoskeletal: No gross abnormalities (Mike Cyr) Course <Osei Ferreira - Last Filed: 03/26/24 21:52> Vital Signs 03/26/24 03/26/24 17:43 20:20 Temperature 98.8 F 99.5 F Pulse Rate 115 H 115 H Respiratory 22 22 Rate Blood Pressure 154/107 170/122 O2 Sat by Pulse 96 95 Oximetry - Reevaluation(s) Reevaluation #1: 03/26/24 21:51 Medical record is reviewed (Osei Ferreira) Reevaluation #2: 03/26/24 21:51 Patient symptoms unchanged (Osei Ferreira) Reevaluation #3: 03/26/24 21:51 Patient informed of results and questions answered (Osei Ferreira) Reevaluation #4: Was pt. sent in by a medical professional or institution (MARILIN Graves, DAY HAUL OR FARM CHARTER BUS DRIVER, urgent care, hospital, or custodial...) When possible be specific @ -no Did you speak to anyone other than the patient for history (EMS, parent, family, police, friend...)? What history was obtained from this source @ -no Did you review nursing and triage notes (agree or disagree)? Why? @ -agree Are old charts reviewed (outside hosp., previous admission, EMS record, old EKG, old radiological studies, urgent care reports/EKG's, custodial records)? Report findings @ -yes Differential Diagnosis (chest pain, altered mental status, abdominal pain women, abdominal pain men, vaginal bleeding, weakness, fever, dyspnea, syncope, headache, dizziness, GI bleed, back pain, seizure, CVA, palpatations, mental health, musculoskeletal)? @ -prior EKG interpreted by me (3pts min.). @ -yes X-rays interpreted by me (1pt min.). @ -yes negative for acute disease CT interpreted by me (1pt min.). @ -no U/S interpreted by me (1pt. min.). @ -no What testing was considered but not performed or refused? (CT, X-rays, U/S, labs)? Why? @ -none What meds were considered but not given or refused? Why? @ -none Did you discuss the management of the patient with other professionals (professionals i.e. , PA, DAY HAUL OR FARM CHARTER BUS DRIVER, lab, RT, psych nurse, social problems specialist, boiler operators supervisor, teacher, chief information officer, correctional casework specialist)? Give summary @ -no Was smoking cessation discussed for >3mins.? @ -no Was critical care preformed (if so, how long)? @ -no Were there social determinants of health that impacted care today? How? (Homelessness, low income, unemployed, alcoholism, drug addiction, t ransportation, low edu. Level, literacy, decrease access to med. care, residential, rehab)? @ -none Was there de-escalation of care discussed even if they declined (Discuss DNR or withdrawal of care, Hospice)? DNR status @ -no What co-morbidities impacted this encounter? (DM, HTN, Smoking, COPD, CAD, Can cer, CVA, ARF, Chemo, Hep., AIDS, mental health diagnosis, sleep apnea, morbid obesity)? @ -none Was patient admitted / discharged? Hospital course, mention meds given and route, prescriptions, significant lab abnormalities, going to OR and other pertinent info. @ - Undiagnosed new problem with uncertain prognosis? @ -no Drug Therapy requiring intensive monitoring for toxicity (Heparin, Nitro, Insulin, Cardizem)? @ -no Were any procedures done? @ -no Diagnosis/symptom? @ - Acute, or Chronic, or Acute on Chronic? @ -Acute Uncomplicated (without systemic symptoms) or Complicated (systemic symptoms)? @ -Complicated Side effects of treatment? @ -no Exacerbation, Progression, or Severe Exacerbation? @ -exacerbation Poses a threat to life or bodily function? How? (Chest pain, [place], [place], pneumonia, PE, COPD, DKA, ARF, appy, cholecystitis, CVA, Diverticulitis, Homicidal, Suicidal, threat to staff... and all critical care pts) @ -yes (Osei Ferreira) Reevaluation #5: Differential Dyspnea: Coronary syndrome, arrhythmia, tamponade, asthma, COPD, pulmonary embolism, pneumonia, pneumothorax, pulmonary effusion, anaphylaxis, diabetic ketoacidosis, flailed chest, pulmonary contusion, diaphragmatic rupture, anemia, neuromuscular, this is not meant to be an all-inclusive list. (Osei Ferreira) Medical Decision Making <Mike Cyr - Last Filed: 03/26/24 17:47> - Lab Data Result diagrams: 03/26/24 20:16 03/26/24 20:16 - Radiology Data Radiology results: report reviewed (CTA chest abdomen pelvis positive for pneumonia), image reviewed <Osei Ferreira - Last Filed: 03/26/24 21:52> - Medical Decision Making I completed the quick note portion of this chart signed JARRETT Pizano (Mike Cyr) 44 male to ER for evaluation of persistent pneumonia symptoms. Patient does have pneumonia and can be discharged home (Osei Ferreira) - Lab Data Lab Results 03/26/24 03/26/24 03/26/24 Range/Units 20:16 20:16 20:16 WBC 11.5 H (3.8-10.6) k/uL RBC 6.10 H (4.30-5.90) m/uL Hgb 16.5 (13.0-17.5) gm/dL Hct 48.6 (39.0-53.0) % MCV 79.6 L (80.0-100.0) fL MCH 27.1 (25.0-35.0) pg MCHC 34.0 (31.0-37.0) g/dL RDW 13.0 (11.5-15.5) % Plt Count 336 (150-450) k/uL MPV 7.7 Neutrophils % 65 % Lymphocytes % 23 % Monocytes % 6 % Eosinophils % 3 % Basophils % 1 % Neutrophils # 7.5 (1.3-7.7) k/uL Lymphocytes # 2.7 (1.0-4.8) k/uL Monocytes # 0.7 (0-1.0) k/uL Eosinophils # 0.4 (0-0.7) k/uL Basophils # 0.1 (0-0.2) k/uL D-Dimer (<0.60) mg/L FEU Sodium 133 L (137-145) mmol/L Potassium 3.8 (3.5-5.1) mmol/L Chloride 97 L (98-107) mmol/L Carbon Dioxide 23 (22-30) mmol/L Anion Gap 13 mmol/L BUN 12 (9-20) mg/dL Creatinine 0.88 (0.66-1.25) mg/dL Est GFR (CKD-EPI)AfAm >90 (>60 ml/min/1.73 sqM) Est GFR (CKD-EPI)NonAf >90 (>60 ml/min/1.73 sqM) Glucose 335 H (74-99) mg/dL POC Glucose (mg/dL) (70-110) mg/dL POC Glu Police Detective ID Plasma Lactic Acid Nam (0.7-2.0) mmol/L Calcium 9.0 (8.4-10.2) mg/dL Phosphorus 3.8 (2.5-4.5) mg/dL Magnesium 1.7 (1.6-2.3) mg/dL Total Bilirubin 0.4 (0.2-1.3) mg/dL AST 23 (17-59) U/L ALT 35 (4-49) U/L Alkaline Phosphatase 41 (38-126) U/L NT-Pro-B Natriuret Pep pg/mL Total Protein 6.6 (6.3-8.2) g/dL Albumin 4.1 (3.5-5.0) g/dL Influenza Type A (PCR) Not Detected (Not Detectd) Influenza Type B (PCR) Not Detected (Not Detectd) RSV (PCR) Not Detected (Not Detectd) SARS-CoV-2 (PCR) Not Detected (Not Detectd) 03/26/24 03/26/24 03/26/24 Range/Units 20:16 20:21 20:44 WBC (3.8-10.6) k/uL RBC (4.30-5.90) m/uL Hgb (13.0-17.5) gm/dL Hct (39.0-53.0) % MCV (80.0-100.0) fL MCH (25.0-35.0) pg MCHC (31.0-37.0) g/dL RDW (11.5-15.5) % Plt Count (150-450) k/uL MPV Neutrophils % % Lymphocytes % % Monocytes % % Eosinophils % % Basophils % % Neutrophils # (1.3-7.7) k/uL Lymphocytes # (1.0-4.8) k/uL Monocytes # (0-1.0) k/uL Eosinophils # (0-0.7) k/uL Basophils # (0-0.2) k/uL D-Dimer 0.31 (<0.60) mg/L FEU Sodium (137-145) mmol/L Potassium (3.5-5.1) mmol/L Chloride (98-107) mmol/L Carbon Dioxide (22-30) mmol/L Anion Gap mmol/L BUN (9-20) mg/dL Creatinine (0.66-1.25) mg/dL Est GFR (CKD-EPI)AfAm (>60 ml/min/1.73 sqM) Est GFR (CKD-EPI)NonAf (>60 ml/min/1.73 sqM) Glucose (74-99) mg/dL POC Glucose (mg/dL) 348 H (70-110) mg/dL POC Glu Police Detective ID [place] Plasma Lactic Acid Nam 2.5 H* (0.7-2.0) mmol/L Calcium (8.4-10.2) mg/dL Phosphorus (2.5-4.5) mg/dL Magnesium (1.6-2.3) mg/dL Total Bilirubin (0.2-1.3) mg/dL AST (17-59) U/L ALT (4-49) U/L Alkaline Phosphatase (38-126) U/L NT-Pro-B Natriuret Pep pg/mL Total Protein (6.3-8.2) g/dL Albumin (3.5-5.0) g/dL Influenza Type A (PCR) (Not Detectd) Influenza Type B (PCR) (Not Detectd) RSV (PCR) (Not Detectd) SARS-CoV-2 (PCR) (Not Detectd) 03/26/24 Range/Units 20:44 WBC (3.8-10.6) k/uL RBC (4.30-5.90) m/uL Hgb (13.0-17.5) gm/dL Hct (39.0-53.0) % MCV (80.0-100.0) fL MCH (25.0-35.0) pg MCHC (31.0-37.0) g/dL RDW (11.5-15.5) % Plt Count (150-450) k/uL MPV Neutrophils % % Lymphocytes % % Monocytes % % Eosinophils % % Basophils % % Neutrophils # (1.3-7.7) k/uL Lymphocytes # (1.0-4.8) k/uL Monocytes # (0-1.0) k/uL Eosinophils # (0-0.7) k/uL Basophils # (0-0.2) k/uL D-Dimer (<0.60) mg/L FEU Sodium (137-145) mmol/L Potassium (3.5-5.1) mmol/L Chloride (98-107) mmol/L Carbon Dioxide (22-30) mmol/L Anion Gap mmol/L BUN (9-20) mg/dL Creatinine (0.66-1.25) mg/dL Est GFR (CKD-EPI)AfAm (>60 ml/min/1.73 sqM) Est GFR (CKD-EPI)NonAf (>60 ml/min/1.73 sqM) Glucose (74-99) mg/dL POC Glucose (mg/dL) (70-110) mg/dL POC Glu Police Detective ID Plasma Lactic Acid Nam (0.7-2.0) mmol/L Calcium (8.4-10.2) mg/dL Phosphorus (2.5-4.5) mg/dL Magnesium (1.6-2.3) mg/dL Total Bilirubin (0.2-1.3) mg/dL AST (17-59) U/L ALT (4-49) U/L Alkaline Phosphatase (38-126) U/L NT-Pro-B Natriuret Pep <20 pg/mL Total Protein (6.3-8.2) g/dL Albumin (3.5-5.0) g/dL Influenza Type A (PCR) (Not Detectd) Influenza Type B (PCR) (Not Detectd) RSV (PCR) (Not Detectd) SARS-CoV-2 (PCR) (Not Detectd) Disposition <Mike Cyr - Last Filed: 03/26/24 17:47> Is patient prescribed a controlled substance at d/c from ED?: No Time of Disposition: 21:50 <Osei Ferreira - Last Filed: 03/26/24 21:52> Clinical Impression: Community acquired pneumonia, Acute exacerbation of chronic obstructive pulmonary disease Disposition: HOME SELF-CARE Condition: Fair Instructions (If sedation given, give patient instructions): Community Acquired Pneumonia (ED) Prescriptions: Amoxic-Pot Clav 875-125Mg [Augmentin 875-125] 1 tab PO Q12HR #20 tablet Referrals: Angela Pradhan MD [Primary Care Provider] - 1-2 days
--- NOTE | 2024-03-26 18:24 | XR ---
EXAMINATION TYPE: XR chest 2V DATE OF EXAM: 03/26/2024 5:59 PM COMPARISON: Chest radiographs from 02/24/2023 CLINICAL INDICATION: Male, 44 years old with history of Cough; [facility] TECHNIQUE: XR chest 2V Frontal and lateral views of the chest. FINDINGS: Lungs/Pleura: There is no evidence of pleural effusion, focal consolidation, or pneumothorax. Pulmonary vascularity: Unremarkable. Heart/mediastinum: Cardiomediastinal silhouette is unremarkable. Musculoskeletal: No acute osseous pathology. Other findings: None IMPRESSION: No acute cardiopulmonary disease/process. [facility], , 03/26/2024 6:22 PM
[2024-03-26] MEDS: SODIUM CHLORIDE 0.9% 1,000 ML IV STA (20:13)
[2024-03-26] MEDS: ONDANSETRON 4 MG/2 ML VIAL IVP STA (20:14)
[2024-03-26 20:23] LABS: Glucose,Whole Blood 348 mg/dL (70-110)
[2024-03-26 20:47] LABS: Basophils # (A) 0.1 k/uL (0-0.2); Basophils % (A) 1 %; Eosinophils # (A) 0.4 k/uL (0-0.7); Eosinophils % (A) 3 %; HCT 48.6 % (39.0-53.0); HGB 16.5 gm/dL (13.0-17.5); Lymphocytes # (A) 2.7 k/uL (1.0-4.8); Lymphocytes % (A) 23 %; MCH 27.1 pg (25.0-35.0); MCV 79.6 fL (80.0-100.0); Mean Platelet Volume 7.7; Monocytes # (A) 0.7 k/uL (0-1.0); Monocytes % (A) 6 %; Neutrophils # (A) 7.5 k/uL (1.3-7.7); Neutrophils % (A) 65 %; Platelet Count 336 k/uL (150-450); WBC 11.5 k/uL (3.8-10.6)
[2024-03-26 20:53] LABS: ALT 35 U/L (4-49); AST 23 U/L (17-59); African American GFR (CKD) >90 (>60 ml/min/1.73 sqM); Albumin 4.1 g/dL (3.5-5.0); Alkaline Phosphatase 41 U/L (38-126); Anion Gap 13 mmol/L; Blood Urea Nitrogen 12 mg/dL (9-20); Carbon Dioxide 23 mmol/L (22-30); Chloride 97 mmol/L (98-107); Glucose 335 mg/dL (74-99); Magnesium 1.7 mg/dL (1.6-2.3); Non-African American GFR(CKD) >90 (>60 ml/min/1.73 sqM); Phosphorus 3.8 mg/dL (2.5-4.5); Potassium 3.8 mmol/L (3.5-5.1); Sodium 133 mmol/L (137-145); Total Bilirubin 0.4 mg/dL (0.2-1.3); Total Protein 6.6 g/dL (6.3-8.2)
[2024-03-26] MEDS: KETOROLAC 15 MG/ML 1 ML VIAL IVP STA (21:20)
--- NOTE | 2024-03-26 21:34 | CT ---
EXAMINATION TYPE: CT angio chest DATE OF EXAM: 03/26/2024 9:23 PM COMPARISON: Chest radiograph from same day. Multiple CTs of the chest with most recent on . CLINICAL INDICATION: Male, 44 years old with history of pain; Pt states has pneumonia for [address] ill taking antibiotics. Not feeling any better. TECHNIQUE/CONTRAST: CTA scan of the thorax is performed with IV Contrast, patient injected with 100cc mL of Isovue 370, M IP images are created and reviewed these are created on a separate workstation.. CT DLP: 524.1 mGycm, Automated exposure control for dose reduction was used. FINDINGS: Lungs/Pleura: Right perihilar soft tissue thickening around the airways with tree-in-bud opacities in the right lower lung. No evidence of focal consolidation, pleural effusion or pneumothorax. Airway: Circumferential wall thickening most pronounced in the right lower lobe extending away from t he right perihilar region.. Heart: Heart is within normal limits for size. Vasculature: There is no evidence for a filling defect within the pulmonary vasculature to suggest ac [place] pulmonary embolism. The pulmonary artery is of normal size. Mediastinum: No gross evidence of adenopathy. Musculoskeletal: Moderate degenerative disc disease changes are present throughout the thoracolumbar spine. Soft Tissues/lymph nodes: Unremarkable. Lower neck: No significant findings. Upper Abdomen: Diffuse low-attenuation to the liver parenchyma.. IMPRESSION: 1. No evidence of pulmonary embolism. 2. Tree-in-bud opacities in the right lower lung extending away from the region of soft tissue around the right pulmonary hilum with large airway wall thickening. Correlate for bronchiolitis and bronchi tis, short-term follow-up CT recommended to ensure soft tissue around the pulmonary hilum resolves. I f tissue does not resolve tissue sampling via bronchoscopy may be of benefit. 3. Hepatic steatosis. [facility], , 03/26/2024 9:32 PM
--- NOTE | 2024-03-26 21:40 | CT ---
EXAMINATION TYPE: CT abdomen pelvis w con DATE OF EXAM: 03/26/2024 9:22 PM COMPARISON: CT chest same day CLINICAL INDICATION: Male, 44 years old with history of pain; Pt states has pneumonia for [address] ill taking antibiotics. Not feeling any better. TECHNIQUE: Axial CT abdomen pelvis w con;Sagittal and coronal reformats were created on a separate w orkstation. Contrast used:100cc mL of Isovue 370 with IV Contrast, (none if empty) Oral contrast used: without Oral Contrast (none if empty) CT DLP: 1458.9 mGycm, Automated exposure control for dose reduction was used. FINDINGS: LOWER CHEST: Please see dedicated CT chest for findings ABDOMEN LIVER: Diffusely hypoattenuating parenchyma. GALLBLADDER AND BILE DUCTS: Unremarkable. PANCREAS: Unremarkable. SPLEEN: Unremarkable. ADRENAL GLANDS: Unremarkable. KIDNEYS AND URETERS: No evidence of hydronephrosis or renal calculus. The ureters are unremarkable. PELVIS BLADDER: No evidence for wall thickening or mass given limitations of exam. REPRODUCTIVE: Unremarkable. ABDOMEN & PELVIS STOMACH AND BOWEL: No evidence of bowel obstruction. Appendix is normal. PERITONEUM/RETROPERITONEUM: No evidence of pneumoperitoneum or free fluid. VASCULATURE: No evidence of aortic aneurysm. MUSCULOSKELETAL: No acute osseous abnormalities LYMPH NODES: No gross evidence for lymphadenopathy. SOFT TISSUE/ABDOMINAL WALL: Unremarkable IMPRESSION: 1. No evidence for acute abdominal process. 2. Hepatic steatosis. [facility], , 03/26/2024 9:38 PM
[2024-03-26] MEDS: AMOXIC-POT CLAV 875-125MG 1 EACH TAB PO STA (22:15)
[2024-03-26] MEDS: AMOXIC-POT CLAV 875MG STARTER PACK 2 TAB BTL PO STA (22:15)
[2024-03-26 22:25] VITALS: BP 144/94; PULSE 111; RESP 20; TEMP 98.8
== END 2024-03-26 22:17 | disposition home or self-care (01) ==
LOC: EC 17:23
DX: J18.9 Pneumonia, unspecified organism (principal); J44.1 Chronic obstructive pulmonary disease with (acute) exacerbation; Z87.891 Personal history of nicotine dependence; Z88.8 Allergy status to other drugs, medicaments and biological substances
CPT/HCPCS: 36415; 85379; 83880; 80053; 83605; 83735; 84100; 85025; 87636; 71046; 71275; 74177; 99285; 96374; 96375; 96361; J2405; J1885; Q9967